=== PATIENT | female | born 1955 | race Caucasian/White ===

== ENCOUNTER 2021-11-10 09:48 | Outpatient (CLI) | payer MEDICARE, BC, SELFPAY ==
--- NOTE | 2021-11-10 10:15 | CRLHL7_ITS ---
For Patients: As a result of the Century Cures Act, medical imaging exams and procedure reports are released immediately into your electronic medical record. You may view this report before your referring provider. If you have questions, please contact your health care provider. BILATERAL SCREENING MAMMOGRAM WITH COMPUTER-AIDED DETECTION AND TOMOSYNTHESIS TECHNIQUE: CC and MLO views were obtained. These mammographic images have been obtained using full-field digital technique. These mammographic images were interpreted with the benefit of computer-aided detection. Breast Tomosynthesis was used in this interpretation. COMPARISON FILM: 04/22/20, 02/13/19, 02/10/18 FINDINGS: There are scattered areas of fibroglandular density IMPRESSION: There is no radiographic evidence for malignancy. ASSESSMENT: BI-RADS Category 1: Negative RECOMMENDATION: Routine screening mammogram in 1 year. A lay language report of this examination will be provided to the patient. Dudley Meyer M.D. Diagnostic/Musculoskeletal Radiologist [email or web address] Transcribed: 2:25 p.m. PT/Dictated by: Dudley Meyer MD @ 11/11/2021 11:11:00 AM (Electronically Signed)
== END 2021-11-10 09:49 | disposition home or self-care (01) ==
LOC: MAMMO 09:49
PROVIDERS: PCP Internal Medicine; Visit Provider Internal Medicine
DX: Z12.31 Encounter for screening mammogram for malignant neoplasm of breast (principal)
CPT/HCPCS: 77063; 77067

== ENCOUNTER 2022-01-05 12:10 | Outpatient (CLI) | payer MEDICARE, BC, SELFPAY ==
[2022-01-05 16:20] LABS: Cholesterol* 230 mg/dL (90-199); Glucose* 79 mg/dL (60-115)
[2022-01-05 16:21] LABS: HDL Cholesterol* 72 mg/dL (>=50); LDL Cholesterol Calculated 140 mg/dL (<100); Triglycerides* 90 mg/dL (40-149)
== END 2022-01-05 12:11 | disposition home or self-care (01) ==
PROVIDERS: PCP Internal Medicine; Visit Provider Physician Assistant
DX: Z01.419 Encounter for gynecological examination (general) (routine) without abnormal findings (principal); R35.0 Frequency of micturition; E66.9 Obesity, unspecified; Z83.49 Family history of other endocrine, nutritional and metabolic diseases; Z13.29 Encounter for screening for other suspected endocrine disorder; N95.1 Menopausal and female climacteric states; I34.0 Nonrheumatic mitral (valve) insufficiency
CPT/HCPCS: 80061; 82947; 84443; 87086

== ENCOUNTER 2022-05-06 17:25 | Emergency (ER) | payer MEDICARE, BC, SELFPAY ==
[2022-05-06 17:38] VITALS: BP 122/76; PULSE 60; RESP 16; TEMP 36.6; O2SAT 97; BMI 27.5
[2022-05-06 17:44] LABS: Appearance Urine Clear (Clear); Bilirubin Urine Negative (Negative); Blood Urine 1+ (Negative); Color Urine Yellow (Yellow); Glucose Urine Negative (Negative); Ketones Urine Negative (Negative); Leukocyte Esterase Urine Negative (Negative); Nitrite Urine Negative (Negative); Protein Urine Negative (Negative); Urobilinogen Urine 0.2 (0.2-1.0); pH Urine 5.5 (5.0-8.5)
--- NOTE | 2022-05-06 17:57 | ED_ITS ---
HPI - General Adult General Chief complaint: Urogenital Problems, Female Stated complaint: Possible UTI, Back Pain, Possible Kidney Stone Time Seen by Provider: 05/06/22 17:46 History of Present Illness HPI narrative: This 66-year-old female comes in reporting 6 weeks of symptoms including increased urinary frequency. She also has some pain in the right paraspinous musculature up near her scapula on the right side. She does not report any injury event or strenuous activity. She does not have a prior history of kidney stone but when she called the clinic nurse she was told to come here because she might have a kidney stone. She does not report any flank pain. She has not had any nausea or vomiting. She does have a prior history of diverticulitis but does not report any abdominal pain. Related Data Previous Rx's Medication Instructions Recorded citalopram 20 mg tablet 20 mg PO DAILY #90 tabs 01/05/22 estradiol 0.01% (0.1 mg/gram) 0.5 g vaginal DAILY #42.5 grams 01/05/22 vaginal cream oxybutynin chloride 5 mg See Rx Instructions .Route 01/22/22 tablet,extended release 24 hr .COMPLEX #90 tabs amoxicillin 875 mg-potassium 1 tab PO Q12H #14 tabs 04/13/22 clavulanate 125 mg tablet mirabegron 25 mg tablet,extended 25 mg PO DAILY #20 tabs 05/06/22 release 24 hr oxybutynin chloride 5 mg tablet 5 mg PO BID-TID PRN bladder spasms 05/06/22 #60 tabs Allergies Allergy/AdvReac Type Severity Reaction Status Date / Time No Known Drug Allergies Allergy Verified 01/05/22 11:37 Review of Systems Status of ROS: Reports: 10 or more systems reviewed and unremarkable except as noted in History and below Narrative: Constitutional: No fevers, no weight gain or loss. Eyes: No discharge. No vision changes. HENT: No congestion, no sore throat, no ear pain. Cardiovascular: No chest pain, no palpitations. Respiratory: No shortness of breath, no wheezes, no cough. Gastrointestinal: No abdominal pain, no vomiting, no diarrhea. Genitourinary: No hematuria. Increased urinary frequency. Musculoskeletal: Normal range of motion. Skin: No rashes, no pruritis. Neurological: No dizziness, weakness, sensory change, speech change. Endo/Heme/Allergies: No bruising or bleeding. No polydipsia. Pysch: no suicidality, no anxiety, no insomnia. All other systems reviewed and are negative. [facility] Medical History (Updated 05/06/22 @ 19:06 by Karthikeyan Harris MD) History of diverticulitis Surgical History (Updated 04/13/22 @ 07:56 by Breana Rodriguez MD) History of hemilaminectomy Family History (Updated 01/05/22 @ 11:00 by Lu Mendoza PA-C) Father Alzheimers disease Mother Breast cancer Cervical cancer Aunt Breast cancer Aunt Alzheimers disease Social History (Updated 01/05/22 @ 11:00 by Lu Mendoza PA-C) Narrative: . Retired. Lifetime nonsmoker. No alcohol use. Smoking Status: Never smoker Little interest or pleasure in doing things: not at all Feeling down, depressed, or hopeless: not at all Exam Narrative: Exam Narrative: Constitutional: Well-developed, well-nourished, no acute distress. HEENT: Normocephalic, atraumatic. Neck: Normal range of motion. Nontender. Supple. Heart: Regular. No murmurs. Normal rate. Intact distal pulses. Lungs: Clear to auscultation. No chest discomfort. No wheezes, rhonchi, or rales. Abdomen: Normal bowel sounds. Nontender. No rebound tenderness. Genitalia: Deferred. Back: No midline tenderness. Normal range of motion. Pain is reproducible when palpating along the paraspinous muscles and rhomboid muscles in the right upper back. Extremities: Normal range of motion. No injury. Skin: Intact. No rash. Warm. No erythema or pallor. Neurologic: No altered sensation. No weakness. Alert and oriented. Psychiatric: No suicidality. No anxiety or depression. No insomnia. Nursing notes and vitals signs are reviewed. Const: Vital Signs, click to edit/add: Vital Signs - 24 hr 05/06/22 17:38 Temperature 97.8 F Pulse Rate [Pulse Oximeter] 60 Respiratory Rate 16 Blood Pressure [Le ft Upper Arm] 122/76 Pulse Oximetry 97 Oxygen Delivery Me thod Room Air Course Vital Signs Vital signs: Initial Vital Signs Temperature 97.8 F 05/06/22 17:38 Temperature Source Temporal Artery Scan 05/06/22 17:38 Pulse Rate 60 05/06/22 17:38 Respiratory Rate 16 05/06/22 17:38 Blood Pressure 122/76 05/06/22 17:38 Blood Pressure Mean 91 05/06/22 17:38 Pulse Oximetry 97 05/06/22 17:38 Oxygen Delivery Method 05/06/22 17:38 Vital Signs Temperature 97.8 F 05/06/22 17:38 Pulse Rate 60 05/06/22 17:38 Respiratory Rate 16 05/06/22 17:38 Blood Pressure 122/76 05/06/22 17:38 Pulse Oximetry 97 05/06/22 17:38 Oxygen Delivery Method 05/06/22 17:38 Temperature 97.8 F 05/06/22 17:38 Pulse Rate 60 05/06/22 17:38 Respiratory Rate 16 05/06/22 17:38 Blood Pressure 122/76 05/06/22 17:38 Pulse Oximetry 97 05/06/22 17:38 Oxygen Delivery Method 05/06/22 17:38 Medical Decision Making MDM Narrative Medical decision making narrative: This patient comes in with some upper mid back pain as described above. There is no suspicion of kidney stone and no prior history of kidney stone. I did discuss lab and imaging options and the patient preferred to check a urine for sign of infection or hematuria. There is no sign of infection or hematuria on urinalysis. She has made 3 or 4 trips to the bathroom during the brief time she was in the emergency department because of overactive bladder. She does have a history of this and is currently taking oxybutynin 5 mg extended release. This is not helping her symptoms at all. I did discuss some options for her going forward and occluding using 5 mg oxybutynin regular release up to 3 times a day. I did also prescribe a muscarinic based treatment for overactive bladder, Mirabegron 25 mg. She has an appointment with her primary physician wear these medicines can be reviewed for effectiveness. Lab Data Labs: Lab Results 05/06/22 Range/Units 17:37 Urine Color Yellow (Yellow) Urine Appearance Clear (Clear) Urine pH 5.5 (5.0-8.5) Ur Specific [place] 1.010 (1.000-1.030) Urine Protein Negative (Negative) Urine Glucose (UA) Negative (Negative) Urine Ketones Negative (Negative) Urine Blood 1+ A (Negative) Urine Nitrite Negative (Negative) Urine Bilirubin Negative (Negative) Urine Urobilinogen 0.2 (0.2-1.0) Ur Leukocyte Esterase Negative (Negative) Urine RBC 0-2 (0-2) Urine WBC 0-2 (0-5) Ur Squamous Epith Cells Few (None-Few) Urine Bacteria None (None) Discharge Plan Discharge Clinical Impression: Overactive bladder Patient Disposition: Home, Self-Care Condition: Stable Additional Instructions: Take regular release oxybutynin 5 mg up to 3 times daily. If not improving consider using Mirabegron 25 mg daily. Follow-up with primary physician as scheduled or return if worsening. Prescriptions: New mirabegron 25 mg tablet extended release 24 hr 25 mg PO DAILY Qty: 20 2RF oxybutynin chloride 5 mg tablet 5 mg PO BID-TID PRN (Reason: bladder spasms) Qty: 60 0RF No Action citalopram 20 mg tablet 20 mg PO DAILY Qty: 90 3RF estradiol 0.01 % (0.1 mg/gram) cream 0.5 g vaginal DAILY Qty: 42.5 3RF amoxicillin-pot clavulanate 875-125 mg tablet 1 tab PO Q12H Qty: 14 0RF oxybutynin chloride 5 mg tablet extended release 24hr See Rx Instructions .ROUTE .COMPLEX Qty: 90 0RF Dose Instruction: TAKE 1 TABLET BY MOUTH EVERY DAY Rx Instructions: TAKE 1 TABLET BY MOUTH EVERY DAY Follow Up/Referrals: Breana Rodriguez MD [Primary Care Provider] - Stand Alone Forms: [facility] Info Instructions
[2022-05-06 18:09] LABS: RBC Urine 0-2 (0-2); Squamous Epithelial Cell Urine Few (None-Few); WBC Urine 0-2 (0-5)
[2022-05-06] MEDS: oxyBUTYnin chloride 5 MG TABLET PO (18:57)
== END 2022-05-06 19:28 | disposition home or self-care (01) ==
PROVIDERS: Emergency Provider Emergency Medicine Emergency Medical Services; PCP Internal Medicine
DX: N32.81 Overactive bladder (principal)
CPT/HCPCS: 81001; 99283; 99284; A9270

== ENCOUNTER 2022-06-22 15:00 | Outpatient (RCR) | payer MEDICARE, BC, SELFPAY ==
--- NOTE | 2022-05-31 12:40 | PT.OPEX ---
PT [place] Outpatient Eval PT [facility] Outpatient Eval Start: 05/28/22 12:44 Freq: Status: Active Protocol: Document 05/28/22 12:44 ARR (Rec: 05/28/22 13:46 ARR [id number]) E-signed By Brielle Patel DPT Physical Therapy Outpatient Evaluation Insurance Information Recert Due Date 08/26/22 Insurance Name Medicare B Medical Diagnosis N32.81 overactive bladder M54.6 pain in thoracic spine Treating Diagnosis R39.15 Urgency of Urination R27.8 Lack of coordination ( muscle incoordination) M54.6 pain in thoracic spine Subjective Subjective -Subjective: ER visit for bladder urgency and R thoracic spine pain on 05/06/22. Have constant urge to urinate in the last 5 years. Was in ER due to this, no infection. Had a burning sensation in urethra. Also gets some pain suprapubic as well. Feels like symptoms will ebb and flow with flares and then reductions. No pelvic PT in the past. -Urinary: No straining with urination. No changes in urine stream. Will get an urge to go, unsure if urge is painful. Daytime voiding 12-15 times. Nocturia 2x/night. Did try cutting down on water to stop going as often. Usually no leaking. Notes coffee can increase symptoms. Complete emptying - but does find that she needs to get up and then need to go back down again. -Hydration: 2-3 cups of water (16-24 oz) / 2 cups (16 oz) or more / social alcohol occasionally -Bowel: BM 1x/day, no straining, type 6 on bristol chart. Does have some bowel urgency. Complete emptying. -Sexual: no pain with intercourse. -Other: Is post-menopausal. ~ 14 yrs ago. Does have estradial cream, maybe 2x/ month. -PMHx: OAB on oxybutynin IR ( Recently changed from ER to IR on 05/06/22 to take 3x/day. Hasn't taken it the last few days) and Detrol stopped this a long time ago. Mitral valve regurgitation, obesity, GERD, low back pain, borderline hyperlipidemia, R sided thoracic pain -: G/P 2/2. Vaginal. Had episiotomy with one. No forceps or vacuum. -Surgical PMHx: hemilaminectomy [id number] L5. Had bone spur removed off big toe on R side, still painful. -Goals: get rid of urge to urinate. Get rid of back pain. Hard to be social and travel due to urgency/frequency. -Current exercise: walk 3x/ week for 30 minutes -Orthopedic issues: occasional back pain. R shoulder blade pain since 01/2022. Constant pain that doesn't change with position or activity. Sleeping will notice it and can wake up. Worse at night when going to bed. Is R handed. Objective Other/Pertinent Objective INTERNAL EXAMINATION INTRAVAGINAL: -Sensation: intact to touch -Observation: de- estrogenization of vulvar/ vaginal tissues with receded labia minor with resorption of inferior portion. Vaginal mucosae pale/shiny dry. Narrowing of introitus. -Perineum: normal -Cough: bulge -Lifting nil -Bulge: bulge Tenderness/pain to palpation/ tone: -Layer 1: ischiocavernosus / bulbospongiousus / superficial transverse perineal - TTP and increased tone -Layer 2: deep transverse perineal / sphincter urethrovaginalis - inc'd tone -Layer 3: puborectalis / pubococcygeus / iliococcygeus - inc'd tone Strength ( R / C / L): -Power (MMT): 3 -Endurance:4 -Reps: 3 -Fast twitch: able to complete 10 reps, in 10 seconds completing 4 reps. -Relaxation of PFM after quick contractions: delayed -Brink score: squeeze pressure 1, muscle contraction duration 1, lift 1. Total score 3 Other: -Breathing examination: dec?d posterior and lateral ribcage mvmt with inhalation -Coordination: poor TA activation with isometric activation Functional Test Performed & Score PFQ score: (total 33) -Bladder 23/45 -Bowel 7/34 -Prolapse 0/15 -Sexual Assessment Assessment/Impression Pt is a 67 y/o female who presents with concerns of urinary urgency/frequency at times voiding up to 15-16 times per day. Signs and symptoms likely indicating / consistent with urinary urgency secondary to elevated pelvic floor muscle tone throughout layers 1-3, reduced posterior/lateral rib expansion, impaired pelvic floor motor control. Behavioral factors also including low water intake consuming only 16-24 oz per day and elevated coffee intake nearly 16 oz per day, and voiding just in case. Patient also has notable objective findings including reduced [place] and brink squeeze strength also likely contributing to the problem. Patient is a good candidate for skilled therapy to target deficits described above. Skilled PT intervention is necessary for use of therapeutic exercise manual therapy, neuromuscular re- education, gait training, and therapeutic activity. Functional impairments include difficulty with: increased urgency/frequency limiting ability to go on vacations and social gatherings. See appropriate sections of PT eval for complete list of goals and POC. D/C plan and criteria is for pt to achieve the goals as listed below or until max rehab potential is met. Pt was agreeable with plan of care and goals established. Evaluation and internal vaginal PFM assessment/ treatment with patient consent was requested and obtained. Plan of Care Physical Therapy Goals STG (within 6 visits) 1) Pt will report voiding interval at least 60 minutes without strong urge to urinate to show improved bladder filling prior to voiding 2)Pt will be indep in recall of at least 4 urinary urge suppression techniques in order to increase duration of voiding interval 3)Pt will report at least 30% improvement in urinary symptoms since start of therapy for improved ability to go on vacations and social gatherings LTG (within 12 visits) 1)Pt will report voiding interval at least 2-3 hours without strong urge to show improved bladder filling prior to voiding 2) Pt will report counting 8- 10 Navarro's while urinating in order for proper micturition of a full bladder 3)Pt will report at least 60% improvement in urinary symptoms since start of therapy for improved ability to go on vacations and social gatherings 4) Pt will demonstrate PFQ score <23 for improved quality of life. Treatment Plan/Direct Interventions Electrical Stimulation,Gait Training,Joint Mobilization, Manual Therapy,Neuromuscular Re-ed,Self-Care/Home Management,Therapeutic Activities,Therapeutic Exercises Frequency/Duration 1x/wk x 12 visit within 90 days Patient Will Be Discharged From Therapy Skills Plateau,Independent w/ HEP Evaluation Billing Untimed Code Treatment Minutes 30 Complexity Moderate Certification Information Initial Certification Date 05/31/22 Ending Certification Date 08/26/22 Provider Signature Shows Agreement With POC & Medical Necessity Physician Signature & Date Requested Please Sign/Date Here Physician Comment/Change : Physician NPI Number #
== END 2022-09-30 23:59 | disposition home or self-care (01) ==
PROVIDERS: PCP Internal Medicine; Visit Provider Internal Medicine
DX: M54.6 Pain in thoracic spine (principal); N32.81 Overactive bladder; Z51.89 Encounter for other specified aftercare
CPT/HCPCS: 97110; 97140; 97162; 97535

== ENCOUNTER 2023-01-04 12:20 | Outpatient (CLI) | payer MEDICARE, BC, SELFPAY ==
[2023-01-04 14:34] VITALS: BP 127/70; PULSE 92
--- NOTE | 2023-01-04 16:56 | W.PM.STED ---
Stress Test Note Date Date of test: 01/04/23 Providers Primary care provider: Breana Rodriguez Stress test physician: Andrea Rodriguez Stress Test Note Stress test ordered: Stress Echo Indication for test: Shortness of breath Results discussion: Patient is a very nice 67-year-old female who presents for the above test after discussion the risks benefits and side effects she would like to proceed pretest EKG shows normal sinus rhythm, there is occasional PVCs, appears to be normal sinus rhythm, ventricular rate 68, blood pressure 107/61, cardiac stress test medical history form is reviewed. Patient would like to proceed with the test. Standard Yousuf protocol is followed over a time course of 7 minutes 2nd, achieved a metabolic VIII 0.5 Mets with a maximum heart rate of 137 which is 105% of the maximum, she had no chest pain, she had some mild fatigue, review of the tracing showed no evidence ST wave changes suggestive of ischemia, Impression: Negative electrographic portion of stress test Follow up suggested: Await echo images, clinical correlation with these will be needed, patient left this testing facility in excellent condition, conditioning was felt to be moderate
== END 2023-01-04 12:21 | disposition home or self-care (01) ==
LOC: STRESS 12:21
PROVIDERS: PCP Internal Medicine; Visit Provider Family Medicine
DX: R07.89 Other chest pain (principal); R06.09 Other forms of dyspnea
CPT/HCPCS: 93016; 93325; 93351

== ENCOUNTER 2023-01-23 17:47 | Emergency (ER) | payer MEDICARE, BC, SELFPAY ==
[2023-01-23] VITALS (13 sets, daily range): BP systolic 101–123; BP diastolic 60–77; PULSE 37–61; RESP 18; TEMP 36.9; O2SAT 92–98; BMI 28.3
--- NOTE | 2023-01-23 18:08 | ED.GENADULT ---
HPI - General Adult General Time Seen by Provider: 18:08 Date Seen: 01/23/23 Chief complaint: Extremity Pain/Injury, Upper Stated complaint: pain in shoulder, breathless, lightheaded Time Seen by Provider: 01/23/23 17:57 Source: patient, RN notes reviewed and old records reviewed Mode of arrival: ambulatory Limitations: no limitations History of Present Illness HPI narrative: This 67-year-old female is coming in with some concerns this evening. She admits she has had a pain in the right shoulder blade area for months, was more just a discomfort. The last couple weeks it has been more intensely painful. She on the way in noted a sudden sharp pain in the top of her shoulder. She does note that when she turns her head she will sometimes feel pain into the right shoulder. She states she generally has some achiness but she recently was put on atenolol for her heart. It sounds as if she was having premature ventricular beats. She believes that it helped that but she started feeling more achy, her legs were just super heavy with walking. She felt more lightheaded and dizzy, notes that her blood pressure runs low anyways. With her PVCs, she feels a flip-flop sensation or vibration. She is feeling that sensation now. She is started to feel more short of breath, she feels it is out of proportion to what she normally does. She baseline has a cough, she states she will feel little tickle in her throat and then will cough so hard. She wonders if that is how she did not initially aggravate her interscapular area on the right side of her back. No fevers or chills. Review of her notes shows that she had a stress echo on 01/05/2020 3-for ischemia, showing mild mitral regurgitation and mitral valve prolapse. She had Holter monitoring done that showed frequent PACs and PVCs, this was similar to the [facility] Holter monitor [place] [address] Rodriguez, greater than 10% of all of her beats. She is noted to have a history of long-standing palpitations. She is seen [facility] in the remote past, beta-blockade was recommended but she never went on it. She did recently go on the 20/5 mg of atenolol twice a day, stopped it due to the symptoms this past Tuesday. On 12/21/2022 she had went to the clinic for dyspnea on exertion and palpitations. Related Data Home Medications Medication Instructions Recorded Confirmed multivitamin (Daily Multi-Vitamin 1 tab PO QAM 05/13/22 01/23/23 tablet) fluticasone furoate 27.5 1 spray intranasal QDAY PRN 12/21/22 01/23/23 mcg/actuation nasal spray,suspension (Flonase Sensimist) Previous Rx's Medication Instructions Recorded estradiol 0.01% (0.1 mg/gram) 0.5 g vaginal DAILY #42.5 grams 01/05/22 vaginal cream atenolol 25 mg tablet 25 mg PO BID #180 tabs 01/10/23 Allergies Allergy/AdvReac Type Severity Reaction Status Date / Time No Known Drug Allergies Allergy Verified 01/23/23 17:58 Review of Systems Status of ROS: Reports: 6 or more systems reviewed and unremarkable except as noted in History and below [facility] Medical History History of diverticulitis ?Z87.19 - Personal history of other diseases of the digestive system (ICD-10) Surgical History History of hemilaminectomy ?Z98.890 - Other specified postprocedural states (ICD-10) Family History Father Alzheimers disease Mother Breast cancer Cervical cancer Aunt Breast cancer Aunt Alzheimers disease Social History Narrative: . Retired. Lifetime nonsmoker. No alcohol use. Smoking Status: Never smoker How often do you have a drink containing alcohol: monthly or less How many standard drinks containing alcohol do you have on a typical day: 1 or 2 How often do you have six or more drinks on one occasion: Never AUDIT-C Alcohol total score: 1 Non-prescribed substance use: denies use Little interest or pleasure in doing things: not at all Feeling down, depressed, or hopeless: not at all Exam Const: Vital Signs, click to edit/add: Vital Signs - 24 hr 01/23/23 17:50 01/23/23 18:10 01/23/23 18:12 Temperature 98.4 F Pulse Rate 39 L 49 L Pulse Rate [Right Pulse Oximeter] 37 L Respiratory Rate 18 Blood Pressure 102/68 Blood Pressure [Ri ght Upper Arm] 113/60 Pulse Oximetry 97 96 96 Oxygen Delivery Me thod Room Air 01/23/23 18:15 01/23/23 18:15 01/23/23 18:30 Temperature Pulse Rate 39 L 57 L Pulse Rate [Right Pulse Oximeter] Respiratory Rate Blood Pressure Blood Pressure [Ri ght Upper Arm] Pulse Oximetry 93 95 94 Oxygen Delivery Me thod 01/23/23 18:32 01/23/23 18:33 01/23/23 18:45 Temperature Pulse Rate 58 L 58 L 61 Pulse Rate [Right Pulse Oximeter] Respiratory Rate Blood Pressure 104/77 Blood Pressure [Ri ght Upper Arm] Pulse Oximetry 94 94 95 Oxygen Delivery Me thod This 67-year-old female is very pleasant, quite talkative, does seem mildly anxious. Speech is normal, able to speak in complete sentences. Sq clear come x-rayed muscles intact. Symmetrical facial function. Neck is supple, no jugular venous distension, no cervical adenopathy, no thyromegaly masses or nodules. She sits up easily, lungs are clear, good air entry, no wheezing or crackles, no tachypnea. She has no midline tenderness of her spine. She has definite tenderness in the interscapular area of the upper portion between the spine and the scapula on the right side, she has reproducible muscular pain there. I can mobilize her right shoulder through full range, no reproducible pain. She is nontender over the clavicle, AC joint, glenohumeral joint, no effusions noted. CV has some ectopy, hear no murmur, normal S1-S2, she is not fast. As I watch on the monitor, can see frequent PVCs sometimes seems to going to bigeminy, do see a few couplets of PVCs. Abdomen is soft, no rebound or guarding, nontender, no organomegaly. She has no lower extremity edema, no calf tenderness. She was ambulatory in the ED of her own accord. Documenting provider has reviewed patient's vital signs: yes Course Course ED Course: Will have her on cardiac monitoring and pulse oximetry, get appropriate labs and a portable chest x-ray. She has had quite an extensive workup already, doubt that her symptoms represent any ischemic disease given normal recent stress test. We will do a troponin. Her interscapular back pain symptoms definitely seem musculoskeletal, have been present for days to weeks and beyond, solitary troponin should be sufficient in her evaluation tonight. Will get a chest x-ray, doubt she has congestive heart failure. Will do a D-dimer. Some of her history that she gave me suggest maybe some cervical radiculopathy features. We will focus on her complaint of the shortness of breath. Check full complement of labs. She is not hypoxic, not tachycardic. She has been on atenolol recently, she might benefit from maybe just a smaller dose of atenolol. Will see if we find anything with her labs are on the chest x-ray, on her cardiac monitoring while she is here over and beyond what I have seen already. She certainly does seem to have significant PVCs and it does sound like the beta-delim did help this but she did not tolerate the dose due to side effects. Reevaluation(s) Time of Reevaluation #1: 19:20 Reevaluation #1: Patient is seen in follow-up, reviewed with her that I see nothing concerning on her portable chest x-ray. Her heart rate has been upper 50s to low 60s on the applications administrator. Pulse on the pulse oximeter has been at the lowest 39, her pulse rate when she checked in on the pulse oximeter was 37. The difference between oximeter and applications administrator is likely the PVCs. She has not been hypoxic here. She does have a negative D-dimer, normal troponin, we reviewed her normal lab results. We discussed that that interscapular back pain is very likely muscular, I did talk about thing she could do outpatient. I did bring up possibility of trigger point injections. She really would like me to try 1 tonight, I discussed with her that we do not typically do this in the ER. I do have time and I am willing to try this for her. We went over risks benefits and side effects, she proceeds to request to have this done. The maximal point of tenderness over the right upper inner aspect of the scapula in the interscapular area were cleaned with alcohol, 5 mL of 1% lidocaine was drawn up in a syringe. I fanned the lidocaine out over the point of maximal tenderness. I did massage the area little bit afterwards. She states it did feel better. IA reassure her that we are not finding any concerning cardiac issues tonight. She has questions about the dyspnea on exertion, reviewed with her that she should follow-up with Dr. Rodriguez for all of these issues, there can be other things causing shortness of breath including pulmonary, possible even such things as deconditioning. She will need further outpatient evaluation, there is nothing needed emergently at this time. Vital Signs Vital signs: Initial Vital Signs Temperature 98.4 F 01/23/23 17:50 Temperature Source Temporal Artery Scan 01/23/23 17:50 Pulse Rate 37 L 01/23/23 17:50 Respiratory Rate 18 01/23/23 17:50 Blood Pressure 113/60 01/23/23 17:50 Blood Pressure Mean 77 01/23/23 17:50 Blood Pressure Position Sitting 01/23/23 17:50 Pulse Oximetry 97 01/23/23 17:50 Oxygen Delivery Method Room Air 01/23/23 17:50 Vital Signs Temperature 98.4 F 01/23/23 17:50 Pulse Rate 37 L 01/23/23 17:50 Respiratory Rate 18 01/23/23 17:50 Blood Pressure 113/60 01/23/23 17:50 Pulse Oximetry 97 01/23/23 17:50 Oxygen Delivery Method Room Air 01/23/23 17:50 Temperature 98.4 F 01/23/23 17:50 Pulse Rate 61 01/23/23 18:45 Respiratory Rate 18 01/23/23 17:50 Blood Pressure 104/77 01/23/23 18:32 Pulse Oximetry 95 01/23/23 18:45 Oxygen Delivery Method Room Air 01/23/23 17:50 Medical Decision Making Lab Data Lab results reviewed: Yes I reviewed the patient's lab results Labs: Lab Results 01/23/23 01/23/23 Range/Units 18:15 18:16 WBC 5.98 (4.50-11.00) K/uL RBC 4.37 (4.00-5.20) m/uL Hgb 12.8 (12.0-16.0) gm/dL Hct 37.5 (33.0-51.0) % MCV 86 (80-100) fL MCH 29 (26-34) pg MCHC 34 (32-36) gm/dL RDW Coeff of [place] 12.9 (11.5-15.5) % Plt Count 171 (140-440) K/uL Neut % (Auto) 50.5 (42.0-72.0) % Lymph % (Auto) 36.8 (20-44) % [place] % (Auto) 8.2 (0.0-11.0) % Eos % (Auto) 3.8 (0.0-7.0) % Baso % (Auto) 0.7 (0.0-3.0) % Neut # (Auto) 3.02 (1.7-7.0) K/uL Lymph # (Auto) 2.20 (0.90-2.90) K/uL [place] # (Auto) 0.50 (0.00-0.90) K/UL Eos # (Auto) 0.23 (0.00-0.50) K/uL Baso # (Auto) 0.04 (0.00-0.30) K/uL Abs Immat Gran (auto) 0.00 (0.00-0.30) K/uL Imm/Tot Granulo (auto) 0.0 % D-Dimer Quant (PE/DVT) 0.31 (0.00-0.50) ug/ml Sodium 139 (135-149) mmol/L Potassium 3.7 (3.6-5.1) mmol/L Chloride 107 (96-114) mmol/L Carbon Dioxide 23 (20-32) mmol/L Anion Gap 9 (7-15) mEq/L BUN 28 (7-30) mg/dL Creatinine 0.8 (0.5-1.5) mg/dL Estimated Creat Clear 49.12 Estimated GFR 81 ml/min Glucose 127 H (60-115) mg/dL Calcium 9.1 (8.4-10.6) mg/dL Magnesium 2.2 (1.5-2.6) mg/dL Total Bilirubin 0.2 (0.1-1.5) mg/dL AST 42 H (12-35) U/L ALT 17 (4-35) U/L Alkaline Phosphatase 83 (40-150) U/L C-Reactive Protein 0.8 (0.5-1.0) mg/dL NT-Pro-B Natriuret Pep 353 pg/mL Total Protein 7.0 (6.0-8.3) g/dL Albumin 4.2 (3.3-5.0) g/dL POC Troponin I 0.00 L (0.01-0.04) ng/ml Imaging Data Chest x-ray: Attestation: I have reviewed the pertinent imaging results. My impression: No acute pathology on my preliminary review. Radiologist's impression: Patient: MONIKA QUILES Facility:?[facility] Patient ID:?[id number] Site Patient ID:?[id number]. Site :?[id number] Study:?XRay Chest portable-01/23/2023 6:31:08 PM Ordering Physician:Teena Hull Final Report: INDICATION: Shortness of breath TECHNIQUE: Chest 1 view. COMPARISON: None. FINDINGS: The heart is normal in size. The pulmonary vasculature is within normal limits. The lungs are clear. The bones are unremarkable. IMPRESSION: No acute process. Dictated by Janet Preciado MD @ 01/23/2023 7:27:54 PM Dictated by: Janet Preciado MD @ 01/23/2023 19:28:15 (Electronic Signature) ECG Data Attestation: I personally reviewed and interpreted this ECG as follows: (Sinus rhythm with PVCs, 1 couplet seen. Rate is 77 beats per minute. QT corrected 482 milliseconds. No definitive ischemic changes noted.) Discharge Plan Discharge Clinical Impression: Shortness of breath, Frequent PVCs, Rhomboid muscle pain Patient Disposition: Home, Self-Care Condition: Stable Instructions: Musculoskeletal Pain (ED), Premature Ventricular Contractions (ED), Shortness of Breath (ED), Trigger Point Injection (DC) Additional Instructions: Need to get scheduled to follow-up with Dr. Rodriguez in clinic. Need to review your intolerance to the atenolol. I do think you could consider just trying to use the atenolol once daily but do advise you to talk to Dr. Rodriguez 1st. As far as the back pain, I feel this is musculoskeletal, we will see if the trigger point injection helps. Can try the naproxen 500 mg twice a day for 5-7 days that you have at home. You can also use Tylenol 1000 mg 3 times a day for this discomfort. You can try some ice to this area on your back. Physical therapy could be considered, referral can be obtained from Dr. Rodriguez given the chronicity of your complaint of pain in this region. Activity Level: Activity as Tolerated Prescriptions: No Action Flonase Sensimist 27.5 mcg/actuation spray,suspension 1 spray intranasal QDAY PRN Rx Instructions: into each nostril estradiol 0.01 % (0.1 mg/gram) cream 0.5 g vaginal DAILY Qty: 42.5 3RF multivitamin [Daily Multi-Vitamin] Tablet 1 tab PO QAM atenolol 25 mg tablet 25 mg PO BID Qty: 180 3RF Follow Up/Referrals: Breana Rodriguez MD [Primary Care Provider] - Stand Alone Forms: videoNEXT Info Instructions
--- NOTE | 2023-01-23 18:15 | CRLHL7_ITS ---
For Patients: As a result of the Cures Act, medical imaging exams and procedure reports are released immediately into your electronic medical record. You may view this report before your referring provider. If you have questions, please contact your health care provider. INDICATION: Shortness of breath TECHNIQUE: Chest 1 view. COMPARISON: None. FINDINGS: The heart is normal in size. The pulmonary vasculature is within normal limits. The lungs are clear. The bones are unremarkable. IMPRESSION: No acute process. Dictated by Janet Preciado MD @ 01/23/2023 7:27:54 PM Dictated by: Janet Preciado MD @ 01/23/2023 19:28:15 (Electronically Signed)
[2023-01-23 18:30] LABS: Basophils Absolute Auto 0.04 K/uL (0.00-0.30); Basophils Percent Auto 0.7 % (0.0-3.0); Eosinophils Absolute Auto 0.23 K/uL (0.00-0.50); Eosinophils Percent Auto 3.8 % (0.0-7.0); Hematocrit 37.5 % (33.0-51.0); Hemoglobin* 12.8 gm/dL (12.0-16.0); Lymphocytes Percent Auto 36.8 % (20-44); Mean Corpuscular HGB Conc 34 gm/dL (32-36); Mean Corpuscular Hemoglobin 29 pg (26-34); Mean Corpuscular Volume 86 fL (80-100); Monocytes Percent Auto 8.2 % (0.0-11.0); Neutrophils Absolute Auto 3.02 K/uL (1.7-7.0); Neutrophils Percent Auto 50.5 % (42.0-72.0); Platelet Count* 171 K/uL (140-440); RDW Coefficient of Variation % 12.9 % (11.5-15.5); Red Blood Count 4.37 m/uL (4.00-5.20); White Blood Count* 5.98 K/uL (4.50-11.00)
[2023-01-23 18:32] LABS: Slide Review Reflex No
[2023-01-23 18:51] LABS: Albumin* 4.2 g/dL (3.3-5.0); Chloride* 107 mmol/L (96-114); Sodium* 139 mmol/L (135-149)
[2023-01-23 18:52] LABS: Potassium* 3.7 mmol/L (3.6-5.1)
[2023-01-23 18:54] LABS: Bilirubin Total* 0.2 mg/dL (0.1-1.5); Creatinine* 0.8 mg/dL (0.5-1.5); Est. Creatinine Clearance* 49.12; Estimated Glomerular Filt Rate 81 ml/min
[2023-01-23 18:55] LABS: Alanine Aminotransferase* 17 U/L (4-35); Alkaline Phosphatase* 83 U/L (40-150); Anion Gap 9 mEq/L (7-15); Aspartate Amino Transferase* 42 U/L (12-35); Blood Urea Nitrogen* 28 mg/dL (7-30); Calcium* 9.1 mg/dL (8.4-10.6); Carbon Dioxide* 23 mmol/L (20-32); Glucose* 127 mg/dL (60-115); Magnesium* 2.2 mg/dL (1.5-2.6)
[2023-01-23 18:56] LABS: D Dimer Quantitative* 0.31 ug/ml (0.00-0.50)
[2023-01-23 18:58] LABS: C Reactive Protein* 0.8 mg/dL (0.5-1.0)
[2023-01-23 19:04] LABS: NT Pro B Type NatriureticPept* 353 pg/mL
== END 2023-01-23 19:44 | disposition home or self-care (01) ==
PROVIDERS: Emergency Provider Family Medicine; PCP Internal Medicine
DX: R06.02 Shortness of breath (principal); I49.3 Ventricular premature depolarization; M79.18 Myalgia, other site
CPT/HCPCS: 36415; 71045; 80053; 83735; 83880; 84484; 85025; 85379; 86140; 87040; 93005; 94761; 99284; 99285

== ENCOUNTER 2023-02-14 13:15 | Outpatient (CLI) | payer MEDICARE, BC, SELFPAY ==
--- NOTE | 2023-02-14 13:20 | CRLHL7_ITS ---
For Patients: As a result of the Cures Act, medical imaging exams and procedure reports are released immediately into your electronic medical record. You may view this report before your referring provider. If you have questions, please contact your health care provider. BILATERAL SCREENING MAMMOGRAM WITH COMPUTER-AIDED DETECTION AND TOMOSYNTHESIS TECHNIQUE: CC and MLO views were obtained. These mammographic images have been obtained using full-field digital technique. These mammographic images were interpreted with the benefit of computer-aided detection. Breast tomosynthesis was used in this interpretation. COMPARISON FILM: 11/10/21, 04/22/20, 02/13/19. FINDINGS: There are scattered areas of fibroglandular density. IMPRESSION: There is no radiographic evidence for malignancy. ASSESSMENT: BI-RADS Category 1: Negative RECOMMENDATION: Routine screening mammogram in 1 year. A lay language report of this examination will be provided to the patient. LD COURTNEY M.D. Diagnostic Radiologist [email or web address] Transcribed: 02/15/2023, 2:[address]/Dictated by: Ld Courtney MD @ 02/15/2023 8:40:00 AM (Electronically Signed)
== END 2023-02-14 13:16 | disposition home or self-care (01) ==
LOC: MAMMO 13:16
PROVIDERS: Absent Provider Obstetrics & Gynecology; PCP Internal Medicine; Visit Provider Obstetrics & Gynecology
DX: Z12.31 Encounter for screening mammogram for malignant neoplasm of breast (principal)
CPT/HCPCS: 77063; 77067

== ENCOUNTER 2024-03-25 08:18 | Emergency (ER) | payer MEDICARE, BC, SELFPAY ==
--- OUTSIDE RECORDS SUMMARY | 2024-03-25 08:20 | XMS_ITS | Encounter Summary ---
Author Organization [facility] Address [address] [place] [id number] Care Team Providers Care Canvas Repairer Name Role Phone Jagdish Astorga M.D. Primary Care Provider [phone] Reason for Visit * Reason Onset Date Comments Abdominal Pain 03/24/2024 Encounter Details Date Type Department Care Team (Late st Contact Info) Description 03/24/2024 Nurse Triage Department of Family Medicine, [facility], in [address] [phone] Lilly Alejo, R.N. [address] [place] [phone] Abdominal Pain Social History Tobacco Use Types Packs/Day Years Used Date Smoking Tobacco: Never Smokeless Tobacco: Never Alcohol Use Standard Drinks/Week Comments Yes 0 (1 standard drink = 0.6 oz pur e alcohol) Social [facility] Utilities Answer Date Recorded In the past 12 months has [place] electric, gas, oil, or water company threatened to shut off services in your home? No 01/02/2024 Social Connection and Isolat ion Panel [NHANES] Answer Date Recorded In a typical week, how many times do you talk on the phone with family, friends, or neighbors? More than three times a week 02/11/2020 How often do you get togethe r with friends or relatives? More than three times a week 02/11/2020 How often do you attend chur ch or anglican services? More than 4 times per year 02/11/2020 Do you belong to any clubs o r organizations such as congregational groups, unions, fraternal or athletic groups, or school groups? No 02/11/2020 How often do you attend meet ings of the clubs or organizations you belong to? Never 02/11/2020 Are you , , di vorced, , never , or living with a partner? 02/11/2020 AUDIT-C Answer Date Recorded Q1: How often do you have a drink containing alc ohol? 2-4 times a month 02/11/2020 Q2: How many drinks containi ng alcohol do you have on a typical day when you are drinking? 1 or 2 02/11/2020 Q3: How often do you have si x or more drinks on one occasion? Never 02/11/2020 Overall Financial Resource Strain (CARDIA) Answe r Date Recorded How hard is it for you to pa y for the very basics like food, housing, medical care, and heating? Not hard at all 02/11/2020 PHQ-2 Answer Date Recorded PHQ-2 Score 0 01/02/2024 [facility] - Occupational Stress Questionnaire Answer Date Recorded Do you feel stress - tense, restless, nervous, or anxious, or unable to sleep at night because your mind is troubled all the time - these days? Only a little 02/11/2020 Exercise Vital Sign Answer Date Recorde d On average, how many days pe r week do you engage in moderate to strenuous exercise (like a brisk walk)? 3 days 03/08/2023 On average, how many minutes do you engage in exercise at this level? 20 min 03/08/2023 Hunger Vital Sign Answer Date Recorded Within the past 12 months, y ou worried that your food would run out before you got the money to buy more. Never true 01/02/20 24 Within the past 12 months, t he food you bought just didn't last and you didn't have money to get more. Never true 01/02/2024 PRAPARE - Transportation Answer Date Re corded In the past 12 months, has l ack of transportation kept you from medical appointments or from getting medications? No 12/13 In the past 12 months, has l ack of transportation kept you from meetings, work, or from getting things needed for daily living? No 01/02/2024 Nutrition Answer Date Recorded On average, how many serving s of fruits and vegetables do you eat per day (serving size is equal to 1 cup or approximately the size of a tennis ball)? 3-5 03/08/2023 Dental Answer Date Recorded Dental: Regular Dentist Yes 03/08/20 Employment Answer Date Recorded Employment status Retired 03/08/2023 Housing Stability Answer Date Recorded What is your living situation today? I have a [facility] place to live 01/02/2024 Education Answer Date Recorded What is the highest level of school you have completed or the highest degree you have received? 12th grade 02/11/2020 Comments No Sex and Gender Information Value Date Recorded Sex Assigned at Female 03/08/2023 1:21 PM SUPERINTENDENT METERS Legal Sex Female 5:23 AM SUPERINTENDENT METERS Gender Identity Female 03/30/2020 2:08 PM SUPERINTENDENT METERS Sexual Orientation Straight 03/30/2020 2: 08 PM SUPERINTENDENT METERS documented as of this encounter Miscellaneous Notes * Telephone Encounter - Lilly Alejo R.N. - 03/24/2024 8:35 AM CST Chief Complaint / Reason for Call Patient is a 68 y.o. female calling regarding Abdominal Pain. Assessment Concern: Lower abdominal pain that comes and goes and is reminiscent of previous diverticulitis pain. Starts in left lower abdomen and moves across. Last 3 nights has had chills, waking up in a sweatand low grade fever of 99-100 F. Wants to know if she can receive treatment over the phone. Present for: 3 days Home cares tried: Tylenol. Calling to request: Treatment for possible diverticulitis. The recommended disposition is See a health care provider within 24 hours. Patient PCOD options: Patient is recommended to seek care within 24 hours. [facility] shared as a good option to receive care, however due to her symptoms patient was advised she may require an in-person visit. Patient agrees to use [facility] to evaluate their symptoms. Message including link to download the bradley and basic instructions sent to patient portal. Reason for Disposition [1] MODERATE pain (e.g., interferes with normal activities) AND [2] pain comes and goes (cramps) AND [3] present > 24 hours (Exception: Pain with Vomiting or Diarrhea - see that Guideline.) Protocols used: Abdominal Pain - [place]-[id number]-FQ Care Advice Patient/Caregiver understands and will follow care advice?: Yes, able to teach back Abdominal Pain - Ncnikc-Frawo-PX Nurse Lilly Sosa Mar 24, 2024 08:42 AM Care Advice SEE PCP WITHIN 24 HOURS: * You need to be examined within the next 24 hours. CALL BACK IF: * Severe pain lasts over 1 hour * Constant pain lasts over 2 hours * You become worse RINTENDENT METERS documented in this encounter Plan of Treatment Upcoming Encounters Date Type Department Care Team (Late st Contact Info) Description 03/30/2024 9:00 AM SUPERINTENDENT METERS Office Visit Department of Cardiovascular Diseases in [place], [place] [address] [place] [phone] Aris Martinez M.D. [address] [place] [phone] documented as of this encounter Visit Diagnoses Not on filedocumented in this encounter Additional Health Concerns Assessment Noted Time PHQ-9 Depression Total Score: 4 02/01/20 15 10:13 AM SUPERINTENDENT METERS documented as of this encounter Care Teams Canvas Repairer Relationship Specialty Start Date End Date Jagdish Astorga M.D. [address] [place] [phone] PCP - General Family Medicine 03/03/23 [facility] [place], [place] Optometry 01/02/24 documented as of this encounter
--- OUTSIDE RECORDS SUMMARY | 2024-03-25 08:20 | XMS_ITS ---
Author Organization [facility] Address [address] [place] [address] Care Team Providers Care Flatwork Ironer Name Role Phone Unavailable Unavailable Unavailable Surgery Details Not on file Complications Check Surgery Details section. Procedure Estimated Blood Loss Check Surgery Details section. Procedure Findings Check Surgery Details section. Procedure Specimens Taken Check Surgery Details section.
--- OUTSIDE RECORDS SUMMARY | 2024-03-25 08:20 | XMS_ITS | Continuity of Care Document ---
Author Name NwSANDRON User [email or web address] Address Unknown Organization Unknown Address Unknown Procedures FILTER APPLIED:Only known Procedures with Onset Date within the last 5 years Procedure Date Procedure Provider Additiona l Information Status SCR MAMMO BI INCL CAD (95567) Completed BREAST TOMOSYNTHESIS BI (98990) Completed COMPLETE CBC W/AUTO DIFF WBC (75723) Completed ELECTROCARDIOGRAM TRACING (05662) Completed MEASURE BLOOD OXYGEN LEVEL (45231) Completed EMERGENCY DEPT VISIT MOD MDM (30739) Completed ASSAY OF TROPONIN QUANT (39158) Completed X-RAY EXAM CHEST 1 VIEW (79485) Completed ROUTINE VENIPUNCTURE (73616) Completed EMERGENCY DEPT VISIT HI MDM (18823) Completed COMPREHEN METABOLIC PANEL (07607) Completed ASSAY OF MAGNESIUM (85493) Completed ASSAY OF NATRIURETIC PEPTIDE (19985) Completed FIBRIN DEGRADATION QUANT (56572) Completed C-REACTIVE PROTEIN (90650) Completed DOPPLER COLOR FLOW ADD-ON (27956) Completed STRESS TTE COMPLETE (74007) Completed Encounters FILTER APPLIED:Only known Encounters with Admission Date within the last 5 years Encounter Location Admission Discharge Billing Code Office Support Specialist [facility]red [facility] Out[facility] Nikita Rivers
--- OUTSIDE RECORDS SUMMARY | 2024-03-25 08:20 | XMS_ITS | Encounter Summary ---
Author Organization [facility] Address [address] [place] [address] Care Team Providers Care Racking Technician Name Role Phone Jagdish Astorga M.D. Primary Care Provider Encounter Details Date Type Department Care Team (Late st Contact Info) Description 09/23/2014 Historical Ophthalmology [facility] Leatha Moreno M.D. Social History Tobacco Use Types Packs/Day Years Used Date Smoking Tobacco: Never Assessed Comments Unknown Sex and Gender Information Value Date Recorded Sex Assigned at Female 03/08/2023 1:21 PM PASTRY SUPERVISOR Legal Sex Female 5:23 AM PASTRY SUPERVISOR Gender Identity Female 03/30/2020 2:08 PM PASTRY SUPERVISOR Sexual Orientation Straight 03/30/2020 2: 08 PM PASTRY SUPERVISOR documented as of this encounter Progress Notes * Leatha Moreno M.D. - 09/23/2014 7:07 AM CDT Eye General CHIEF COMPLAINT Possible optic nerve inflammation HISTORY OF PRESENT ILLNESS No current changes/concerns with vision. From Dr. Hernandez's Neurology Consult note of 09/17/14: In June 2014 she was in [place]. She is sitting in a chair and noticed a white flash in the peripheral of her vision. She cannot remember which eye. Then she was watching TV and noticed white spots in the middle of the faces of both people on TV.This lasted for a couple of minutes, and she turned off the TV and it went away. There were no white spots on the wall or anywhere else. This was possibly in both eyes, but she is not sure. She then subsequently maybe had some blurry vision in both eyes for the rest of the day and did not feel welloverall. She went to lay down and felt better. She did feel lightheaded subsequently that week and a little bit sick. She did have one brief episode of double vision that lasted for a couple seconds.She did not have any eye pain. She did have a sharp head pain in the occiput region which is tenderto the touch. She also notes that she has some right eyebrow tenderness which spread to her right mandaen. Massaging her mandaen does help. She also feels an occasional pinching behind her eye. Throughout the winter she has had some pressure in her right ear which she thought has been recurrent ear infections. She did receive amoxicillin at one point. In July 2014 she did have an MRI. We do not have these images, but according to the report of her primary care doctor, the MRI showed a small amount of enhancement along the right prechiasmatic optic nerve which might be consistent with optic neuritis. Because of this, she was referred here to [place].She did see an chimney sweeper at the end of July who did a dilated eye exam and said her optic nerve was not inflamed. He told her not to worry and that sometimes radiologists overcall things. Her eyes were okay. Since then she has not had any recurrence of the blurry vision or double vision. Sometimes she doesfeel lightheaded when looking up. She does continue to occasionally have a sharp tenderness in the back of her head which is painful to the touch as well as the pressure over her right eyebrows. She does note that she has had numerous years of sinus headaches. For this she has taken various ppfq-not-cmmyiae medications but nothing in the last month. EBONY: Hx as above. She saw a white flash of light on one side of her vision (she can't recall which side) for a few seconds and she couldn't see the faces on TV for a few minutes followed by a OLIVAS. Shewent and layed down. The thinks this was two months ago. Hx of sinus headaches. These have been constant since the beginning of 2014, in her R eyebrow region radiating to her ear and the back of the skull. This is like a pressure sensation. No nausea. Has photo and phonophobia but no osmophobia. Has tried several OTC pain and sinus meds but she's not sure they help, not currently taking anything. Was told of fluid in her ear and was given antibioticswithout relief. No known family hx of headaches. Sister (age 63) dx w glioblastoma in 12/25 (she also had a white flash). She saw Dr. Turk in [facility] who didn't think there was any evidence of inflammation. No outside eye records available to me. Reviewed neuro notes. No neuro-imaging available. IMPRESSION / REPORT / PLAN Consult requested by: Rosalia Gayle [id number] #1 Migraine headache with aura, with no ocular cause, with no ocular findings. Reassured - exam is normal. History is not consistent with optic neuritis. Plan: Baseline disc photos and OCT. I will review the tests when completed and put the results in the EMR. Photo Interpretation: Photos confirm and document clinical findings of diagnosis and are of sufficient quality to permit their use to follow disease progression. Cirrus RNFL OCT: Normal OU. Avg thickness 98 OD, 87 OS. Signal 9/10 OU. Cirrus ganglion OCT: Normal OU. Avg thickness 79 OD, 78 OS. Signal 9/10 OU. #2 Refractive error (hyperopia, hyperopic astigmatism, presbyopia). Plan: no change in spectacle prescription recommended, spectacle prescription (Refraction 1) given. DIAGNOSIS #1 Migraine headache with aura, with no ocular cause, with no ocular findings. #2 Refractive error (hyperopia, hyperopic astigmatism, presbyopia). CDM Reports - [facility] Id: [id number] Status: Fnl documented in this encounter Plan of Treatment Upcoming Encounters Date Type Department Care Team (Late st Contact Info) Description 03/30/2024 9:00 AM PASTRY SUPERVISOR Office Visit Department of Cardiovascular Diseases in [address] [id number] Aris Martinez M.D. [address] [place] [address] documented as of this encounter Visit Diagnoses Not on filedocumented in this encounter Additional Health Concerns Infection Onset Date Last Indicated Resolved Time COVID19 01/31/2023 01/31/2023 02/20/2023 5:49 AM PASTRY SUPERVISOR Assessment Noted Time PHQ-9 Depression Total Score: 3 07/06/19 15 8:44 AM CDT documented as of this encounter Care Teams Racking Technician Relationship Specialty Start Date End Date Jagdish Astorga M.D. [address] [facility] [place] [id number] PCP - General Family Medicine 03/03/23 [facility] [place], [place] Optometry 01/02/24 documented as of this encounter
--- OUTSIDE RECORDS SUMMARY | 2024-03-25 08:20 | XMS_ITS | Clinical Summary ---
Author Organization [facility] Address [address] [place] [address] Care Team Providers Care Nurse Orthopaedic Name Role Phone Jagdish Astorga M.D. Primary Care Provider [phone] Source Comments Patient records contain information from all sites at [facility]. For routine questions regarding patient records, call [phone] during business hours, M-F 8:00 AM - 5:00 PM Central Time. Record requests for emergency care only can be directed to [phone] at any time.[facility] Allergies No known active allergies Medications estradioL (Estrace) 0.5 mg tablet 0.5 g by other route. 2 Active fluticasone (VERAMYST) 27.5 mcg/actuation nasal spray Administer 1 spray into each nostril daily. 9.1 mL 1 4 Active Additional Information Patient taking differently:1 spray each nostrilDaily PRN, rhinitis, allergies, Reported on 01/02/2024 dilTIAZem CD (Cardizem CD) 180 mg 24 hr capsule Take 1 capsule (180 mg total) by mouth daily. 90 capsule 3 4 Active Active Problems Patient Care Coordination No te Formatting of this note migh t be different from the original. SHONNA completed 01/02/24 for Dwight, and [place], child. This is valid for life unless revoked. Problem Noted Date Diagnosed Date Fatigue 04/18/2023 Urinary Urge Incontinence 12/20/2016 Rhinitis Allergic 12/20/2016 Hernia Hiatal 12/20/2016 Dry Eye Syndrome Bilateral 12/20/2016 Presbyopia 09/23/2014 Mitral Valve Prolapse 09/05/2014 Beat Premature Ventricular 09/05/2014 Pain Low Back Unspecified 06/14/2011 Rosacea 06/14/2011 Radiculopathy Sacral First Left 05/12/2005 Resolved Problems Problem Noted Date Diagnosed Date Resolved Date Diverticulosis Colon 12/24/2016 021 Esophagitis 07/25/2014 04/01/2020 Neuritis Optic 07/23/2014 04/01/2020 Encounters Date Type Department Care Team Description 03/24/2024 Nurse Triage Department of Family Medicine, [facility], in [address] [address] Lilly Alejo, RShengN. Abdominal Pain 03/21/2024 9:47 AM BUSINESS SUPPORT ASSISTANT - 03/21/2024 11:59 PM BUSINESS SUPPORT ASSISTANT Hospital Encounter Department of Cardiovascular Diseases in [address] [address] Aris Martinez M.D. Shortness Of Breath; Beat Premature Ventricular; Mitral Valve Prolapse Discharge Disposition: Home or Self Care 03/21/2024 8:41 AM BUSINESS SUPPORT ASSISTANT - 03/21/2024 9:46 AM BUSINESS SUPPORT ASSISTANT Hospital Encounter Department of Laboratory Medicine in [address] [address] Aris Martinez M.D. Shortness Of Breath; Beat Premature Ventricular; Mitral Valve Prolapse Discharge Disposition: Home or Self Care 03/21/2024 8:41 AM BUSINESS SUPPORT ASSISTANT - 03/21/2024 9:46 AM BUSINESS SUPPORT ASSISTANT Hospital Encounter Department of Cardiovascular Diseases in [address] [address] Aris Martinez M.D. Shortness Of Breath; Beat Premature Ventricular; Mitral Valve Prolapse Discharge Disposition: Home or Self Care 02/17/2024 9:46 AM BUSINESS SUPPORT ASSISTANT - 02/17/2024 11:59 PM BUSINESS SUPPORT ASSISTANT Hospital Encounter Department of Radiology in [address] [address] Jagdish Astorga M.D. Screening Mammogram Breast Cancer Discharge Disposition: Home or Self Care 01/16/2024 Orders Only Department of [facility], [facility], in [address] [address] Jagdish Astorga M.D. Osteoporosis (Primary Dx) 01/02/2024 10:30 AM CDT Office Visit Department of [facility], in [address] [address] Lima Ponce R.N. Annual Medicare Examination Return (Primary Dx) 01/02/2024 Clinical Communication Department of [facility], [facility], in [address] [address] Jagdish Astorga M.D. Diltiazem (Patient wants some clarifications on dosing. ); Health Maintenance items (Mammo and Pap) from Last 3 Months Immunizations Name Administration Dates Next Due H1N1 Inj 02/13/2009 Influenza high dose QV(65 ye ars or older) (PF) 12/21/2022 Influenza, Quadrivalent, Adj uvanted, Preservative Free 12/28/2021 Influenza, Seasonal, Injectable 01/05/2016,01/16 Influenza, Unspecified 12/13/2014,2013,02/23/2011,2009,12/20/2008,01/17/2008 PCV13 07/05/2014 PPSV23 07/08/2020 RZV (SHINGRIX) 01/25/2019,11/22/2018 SARS-COV-2 (COVID-19) - MODE RNA (12 YEARS AND OLDER) Fall Seasonal 12/19/2023,02/27/2023 SARS-COV-2 (COVID-19) - PFIZ ER TS(Discontinued)(12 years or older) 07/04/2021 Tdap 11/10/2023,08/17/2012,05/28/2011 influenza trivalent high dos e (HD)(PF) 11/10/2023 influenza vaccine QV(FLUBLOK ) (18 years or older) (PF) 12/27/2018 influenza vaccine quad (FLUZONE/FLUARIX) (6 months and older)(PF) 01/13/2021,12/20/2019 Family History Medical History Relation Name Comments Arthritis Brother 1 Lamine Hearing loss Brother 1 Lamine No Known Problems Brother 2 Gorge Abnormal Pap Smear Daughter [place] Alzheimer's disease Father Dad Arthritis Father Dad Dementia Father Dad Breast cancer Father's Sister Arthritis Mother Mom Breast cancer Mother Mom Cervical cancer Mother Mom Thyroid dysfunction Mother Mom Breast cancer Mother's Sister Breast cancer Niece Marilee Triple Negativ e Breast Cancer Brain Tumor Sister Eloisa Glioblstoma Relation Name Status Comments Brother 1 Lamine Alive Brother 2 Gorge Alive Daughter [place] Alive Father Dad (Age 74) Father's Sister Mother Mom Alive Mother's Sister Niece Marilee Alive Sister Eloisa (Age 64) Social History Tobacco Use Types Packs/Day Years Used Date Smoking Tobacco: Never Smokeless Tobacco: Never Tobacco Cessation:Counseling Given: Not Answered Alcohol Use Standard Drinks/Week Comments Yes 0 (1 standard drink = 0.6 oz pur e alcohol) Social [employer] Utilities Answer Date Recorded In the past 12 months has e electric, gas, oil, or water Social [employer] threatened to shut off services in your [...] often do you attend chur ch or alevism services? More than 4 times per year 02/11/2020 Do you belong to any clubs o r organizations such as scientologist groups, unions, fraternal or athletic groups, or [...] Answer Date Recorded PHQ-2 Score 0 01/02/2024 [facility] - Occupational Stress Questionnaire Answer Date [...] Answer Date Recorded Dental: Regular Dentist Yes 12/26/20 23 Employment Answer Date Recorded Employment status Retired 03/08/2023 Housing Stability Answer Date Recorded What is your living situation today? I have a [facility] place to live 01/02/2024 Education Answer Date Recorded What is the highest level of school you have completed or the highest degree you have received? 12th grade 02/11/2020 Comments No Sex and Gender Information Value Date Recorded Sex Assigned at Female 03/08/2023 1:21 PM BUSINESS SUPPORT ASSISTANT Legal Sex Female 5:23 AM BUSINESS SUPPORT ASSISTANT Gender Identity Female 03/30/2020 2:08 PM BUSINESS SUPPORT ASSISTANT Sexual Orientation Straight 03/30/2020 2: 08 PM BUSINESS SUPPORT ASSISTANT Last Filed Vital Signs Vital Sign Reading Time Taken Comments Blood Pressure 117/73 01/02/2024 11:19 AM CDT average of 3 Pulse 59 01/02/2024 11:19 AM CDT Temperature 36.3 C (97.3 F) 01/02/2024 11:19 AM CDT Respiratory Rate 16 01/02/2024 11:1 9 AM CDT Oxygen Saturation 96% 03/08/2023 2:1 6 PM BUSINESS SUPPORT ASSISTANT Inhaled Oxygen Concentration - - Weight 76.1 kg (167 lb 12.3 oz) 01/02/2024 11:19 AM CDT Height 164.5 cm (5' 4.76) 01/02/2024 1 1:19 AM CDT Body Mass Index 28.12 01/02/2024 11:19 AM CDT Plan of Treatment Upcoming Encounters Date Type Department Care Team (Late st Contact Info) Description 03/30/2024 9:00 AM BUSINESS SUPPORT ASSISTANT Office Visit Department of Cardiovascular Diseases in [place], [place] [address] [place] [address] Aris Martinez M.D. [address] [place] [address] Health Maintenance Due Date Last Done Comments CT Colonography 1955 Cologuard 1955 FIT 1955 Hepatitis C Screening 1955 Depression Screening (Annual PHQ-2) 03/14/2024 Fall Risk Screen (Annual) 03/14/2024 Visit: Annual, age 65+ (or Medicare and <65) 04/18/2024 04/18/2023 Visit: Medicare Annual Wellness 01/02/2025 01/02/2024 Mammogram 02/16/2025 02/17/2024, 07/2022 (Performed elsewhere), 02/14/2023, Additional history exists Fasting Glucose for Diabetes Screening 01/27/2026 01/27/2023, 07/05/2014, 05/14/2013, Additional history exists Colonoscopy 07/08/2026 07/08/2016, 06/13 (Performed elsewhere), 12/30/2005, Additional history exists Colorectal Cancer Screening 07/08/2026 DTaP,Tdap,and Td Vaccines (4 - Td or Tdap) 11/09/2033 11/10/2023, 08/17/2012, 05/28/2011 Zoster Vaccines Completed 01/25/2019, 11/22/2018 Pneumococcal vaccine (50+ years) Completed 07/08/2020, 07/05/2014 Cervical/Vaginal Cancer Screening Discontinued 07/16/2020, 06/16/2016, 12/31/2012, Additional history exists Influenza Vaccine Completed 11/10/2023, , 12/28/2021, Additional history exists COVID-19 Vaccine Completed 12/19/2023, , 12/28/2021, Additional history exists IPV Vaccines Aged Out No longer eligi ble based on patient's age to complete this topic Procedures Procedure Name Priority Date/Time Associated Diagnosis Comments HOLTER MONITOR - IN CLINIC SENIOR FRONT END DEVELOPER Routine 03/22/2024 10:31 AM BUSINESS SUPPORT ASSISTANT Shortness Of Breath Beat Premature Ventricular Mitral Valve Prolapse (TTE) 2D ECHO DOPPLER COLOR Routine 03/21/2024 10:16 AM BUSINESS SUPPORT ASSISTANT Shortness Of Breath Beat Premature Ventricular Mitral Valve Prolapse ECG Routine 03/21/2024 9:32 AM BUSINESS SUPPORT ASSISTANT Shortness Of Breath Beat Premature Ventricular Mitral Valve Prolapse BI BREAST SCREENING BILATERAL WITH TOMOSYNTHESIS RAD - Routine (most inpatients and all outpatients) 02/17/2024 11:10 AM BUSINESS SUPPORT ASSISTANT Screening Mammogram Breast Cancer BASIC METABOLIC PANEL, S/P Routine 01/27/2023 2:14 PM BUSINESS SUPPORT ASSISTANT Shortness Of Breath COLONOSCOPY Routine 07/08/2016 from Last 3 Months or Most Recently Relevant to Health Maintenance Results * (TTE) 2D ECHO DOPPLER COLOR (03/21/2024 10:16 AM BUSINESS SUPPORT ASSISTANT) Ejection Fraction 63 MC CV EIMS Mid-Ascending Aorta 35 MC CV EIMS LV Mass Index 98 MC CV EIMS LV End-Diastolic Diameter 54 MC CV EIMS LV End-Systolic Diameter 35 MC CV EIMS LV End-Diastolic Volume 124 MC CV EIMS LV End-Systolic Volume 45 MC CV EIMS MV E Velocity 0.4 MC CV EIMS MV A Velocity 0.6 MC CV EIMS MV E/A 0.67 MC CV EIMS MV e' Velocity Medial 0.04 MC CV EIMS MV e' Velocity Lateral 0.06 MC CV EIMS MV E/e' Medial 10 MC CV EIMS MV E/e' Lateral 6.7 MC CV EIMS Left ventricular stroke volume index 48 MC CV EIMS Cardiac Output 4.45 MC CV EIMS Cardiac Index 2.43 MC CV EIMS LV Interventricular Septal Wall Thickness 9 MC CV EIMS LV Posterior Wall Thickness 9 MC CV EIMS LV Relative Wall Thickness 33 MC CV EIMS TAPSE 23 MC CV EIMS Tricuspid Annular S 0.12 MC CV EIMS TR Vmax 2.6 MC CV EIMS RA Pressure 5 MC CV EIMS RV Systolic Pressure 32 MC CV EIMS AV mean gradient 6 MC CV EIMS Aortic valve area 2.7 MC CV EIMS Aortic Valve Dimensionless Index 0.65 MC CV EIMS MV regurgitant volume 34 MC CV EIMS LA Volume Index 33 MC CV EIMS Aortic Valve Systolic Peak Velocity 1.7 MC CV EIMS Anatomical Region Laterality Modality Echocardiography 03/21/2024 8:41 AM BUSINESS SUPPORT ASSISTANT Impressions 03/21/2024 4:11 PM BUSINESS SUPPORT ASSISTANT Transthoracic outreach echo interpretation. LEFT VENTRICLE:Normal left ventricular chamber size. Abnormal left ventricular geometry with eccentric left ventricular hypertrophy. Calculated 2-D biplane volumetric left ventricular ejection fraction of 63%. No regional wall motion abnormalities. Grade 1/3 left ventricular diastolic dysfunction, consistent with low to normal left ventricular filling pressure at rest. RIGHT VENTRICLE:Normal right ventricular chamber size. Normal right ventricular systolic function. Estimated right ventricular systolic pressure 32 mmHg (right atrial pressure of 5 mmHg). ATRIA:Normal left atrial size. Left atrial volume index 33 ml/m2. Normal right atrial size. CARDIAC VALVES:Trileaflet aortic valve. Thickened aortic valve. Mild aortic valve regurgitation (2 jets). Mitral valve posterior leaflet prolapse. Mild-moderate mitral valve regurgitation. Mitral regurgitant volume (PISA) 34 ml. Mitral regurgitation ERO (PISA) 0.20 cm2. Normal pulmonary valve. Trivial pulmonary valve regurgitation. Normal tricuspid valve. Mild tricuspid valve regurgitation. OTHER ECHO FINDINGS:Normal inferior vena cava size with normal inspiratory collapse (>50%). Normal mid ascending aorta diameter of 35 mm. Abdominal aorta incompletely visualized. Normal abdominal aorta Doppler flow pattern. No atrial level shunt by color flow imaging. No intracardiac mass or thrombus, but the left atrial appendage cannot be visualized adequately with transthoracic echo to exclude thrombus in this location. No pericardial effusion. For the complete report, see the Order-Level Documents. Narrative 03/21/2024 4:11 PM BUSINESS SUPPORT ASSISTANT For the complete report, see the Order-Level Documents. Hemodynamics Heart Rate: 51 BPM Blood Pressure: 127 / 74 mmHg ECG: Sinus rhythm Final Impressions 1. Transthoracic outreach echo interpretation. 2. Mitral valve posterior leaflet prolapse. No clear flail identified. No evidence of mitral annular disjunction (challenging visualization during the complete cardiac cycle) or Pikelhaube sign. 3. Mild-moderate mitral valve regurgitation. 4. Normal left ventricular chamber size, no regional wall motion abnormalities, calculated 2-D biplane volumetric ejection fraction of 63%. 5. Abnormal left ventricular geometry with eccentric left ventricular hypertrophy, grade 1/3 diastolic dysfunction, consistent with low to normal filling pressure at rest. 6. Normal right ventricular chamber size, normal systolic function, estimated right ventricular systolic pressure 32 mmHg (right atrial pressure of 5 mmHg). 7. Mild aortic valve regurgitation (2 jets). Trileaflet aortic valve. 8. No pericardial effusion. 9. Compared to the report of 07/10/2014 the following changes have occurred: prolapse in the current study is involves the posterior mitral valve leaflet; mildly increased mitral regurgitation; mild aortic regurgitation is now present. Side by side comparison of images performed. Procedure Note Aris Martinez M.D. - 03/21/2024 For the complete report, see the Order-Level Documents. Hemodynamics Heart Rate: 51 BPM Blood Pressure: 127 / 74 mmHg ECG: Sinus rhythm Final Impressions 1. Transthoracic outreach echo interpretation. 2. Mitral valve posterior leaflet prolapse. No clear flail identified. Noevidence of mitral annular disjunction (challenging visualization duringthe complete cardiac cycle) or Pikelhaube sign. 3. Mild-moderate mitral valve regurgitation. 4. Normal left ventricular chamber size, no regional wall motionabnormalities, calculated 2-D biplane volumetric ejection fraction of63%. 5. Abnormal left ventricular geometry with eccentric left ventricularhypertrophy, grade 1/3 diastolic dysfunction, consistent with low tonormal filling pressure at rest. 6. Normal right ventricular chamber size, normal systolic function,estimated right ventricular systolic pressure 32 mmHg (right atrialpressure of 5 mmHg). 7. Mild aortic valve regurgitation (2 jets). Trileaflet aortic valve. 8. No pericardial effusion. 9. Compared to the report of 07/10/2014 the following changes haveoccurred: prolapse in the current study is involves the posterior mitralvalve leaflet; mildly increased mitral regurgitation; mild aorticregurgitation is now present. Side by side comparison of imagesperformed. Findings Transthoracic outreach echo interpretation. LEFT VENTRICLE:Normal left ventricular chamber size. Abnormal leftventricular geometry with eccentric left ventricular hypertrophy.Calculated 2-D biplane volumetric left ventricular ejection fraction of63%. No regional wall motion abnormalities. Grade 1/3 left ventriculardiastolic dysfunction, consistent with low to normal left ventricularfilling pressure at rest. RIGHT VENTRICLE:Normal right ventricular chamber size. Normal rightventricular systolic function. Estimated right ventricular systolicpressure 32 mmHg (right atrial pressure of 5 mmHg). ATRIA:Normal left atrial size. Left atrial volume index 33 ml/m2. Normalright atrial size. CARDIAC VALVES:Trileaflet aortic valve. Thickened aortic valve. Mildaortic valve regurgitation (2 jets). Mitral valve posterior leafletprolapse. Mild-moderate mitral valve regurgitation. Mitral regurgitantvolume (PISA) 34 ml. Mitral regurgitation ERO (PISA) 0.20 cm2. Normalpulmonary valve. Trivial pulmonary valve regurgitation. Normal tricuspidvalve. Mild tricuspid valve regurgitation. OTHER ECHO FINDINGS:Normal inferior vena cava size with normal inspiratorycollapse (>50%). Normal mid ascending aorta diameter of 35 mm. Abdominalaorta incompletely visualized. Normal abdominal aorta Doppler flowpattern. No atrial level shunt by color flow imaging. No intracardiac massor thrombus, but the left atrial appendage cannot be visualized adequatelywith transthoracic echo to exclude thrombus in this location. Nopericardial effusion. For the complete report, see the Order-Level Documents. us Aris Martinez M.D. CV ECHO PROCEDURES Final R esult * ECG 12 Lead (03/21/2024 9:32 AM BUSINESS SUPPORT ASSISTANT) Ventricular Rate ECG/Min 48 BPM MUSE KS Interval 166 ms MUSE QRSD Interval 88 ms MUSE QT Interval 486 ms MUSE QTC Interval 434 ms MUSE P [place] 37 degrees MUSE R [place] -17 degrees MUSE T Wave [place] 20 degrees MUSE 03/21/2024 9:32 AM BUSINESS SUPPORT ASSISTANT 03/21/2024 9:52 AM BUSINESS SUPPORT ASSISTANT Impressions MUSE - 03/21/2024 9:52 AM BUSINESS SUPPORT ASSISTANT Marked sinus bradycardia Otherwise normal ECG When compared with ECG of 27-Jan-2023 14:18, Nonspecific T wave abnormality no longer evident in Lateral leads Vent. rate has decreased Reviewed by ISSAC Robertson Narrative Procedure Note Bolivar Inman M.D., M.P.H. - 03/21/2024 IMPRESSION: Marked sinus bradycardia Otherwise normal ECG When compared with ECG of 27-Jan-2023 14:18, Nonspecific T wave abnormality no longer evident in Lateral leads Vent. rate has decreased Reviewed by ISSAC Robertson Aris Martinez M.D. ECG ORDERABLES Final Resu lt MUSE NA * BI Breast Screening Bilateral with Tomosynthesis (02/17/2024 11:10 AM BUSINESS SUPPORT ASSISTANT) Anatomical Region Laterality Modality Breast, Breast Imaging RST L OS, Breast Imaging ARZ LOS, Breast Imaging FLA LOS Bilateral Mammography Impressions 02/17/2024 11:31 AM BUSINESS SUPPORT ASSISTANT Negative. RECOMMENDATION: Annual Screening Mammogram ASSESSMENT: BI-RADS: 1: Negative. Narrative 02/17/2024 11:31 AM BUSINESS SUPPORT ASSISTANT EXAM: BI BREAST SCREENING BILATERAL WITH TOMOSYNTHESIS Current study was evaluated with a Computer Aided Detection (CAD) system. INDICATION: Screening mammogram. COMPARISON: Prior exam(s) were available and reviewed for comparison. DENSITY: b. There are scattered areas of fibroglandular density. FINDINGS: No mammographic findings of malignancy. Procedure Note Jules Cadet M.D. - 02/17/2024 EXAM: BI BREAST SCREENING BILATERAL WITH TOMOSYNTHESIS Current study was evaluated with a Computer Aided Detection (CAD) system. INDICATION: Screening mammogram. COMPARISON: Prior exam(s) were available and reviewed for comparison. DENSITY: b. There are scattered areas of fibroglandular density. FINDINGS: No mammographic findings of malignancy. IMPRESSION: Negative. RECOMMENDATION: Annual Screening Mammogram ASSESSMENT: BI-RADS: 1: Negative. us Jagdish Astorga M.D. IMG BI PROCEDURES Final Resu lt * (ABNORMAL) Basic Metabolic Panel (01/27/2023 2:14 PM BUSINESS SUPPORT ASSISTANT) Potassium, P 4.2 3.6 - 5.2 mmol/L 01/27/2023 3:10 PM BUSINESS SUPPORT ASSISTANT OWAT Sodium, P 140 135 - 145 mmol/L 01/27/2023 3:10 PM BUSINESS SUPPORT ASSISTANT OWAT Chloride, P 104 98 - 107 mmol/L 01/27/2023 3:10 PM BUSINESS SUPPORT ASSISTANT OWAT Bicarbonate, P 20(L) 22 - 29 mmol/L 01/27/2023 3:10 PM BUSINESS SUPPORT ASSISTANT OWAT Anion Gap, P 16(H) 7 - 15 01/27/2023 3:10 PM BUSINESS SUPPORT ASSISTANT OWAT BUN (Blood Urea Nitrogen), P 24(H) 6 - 21 mg/dL 01/27/2023 3:10 PM BUSINESS SUPPORT ASSISTANT OWAT Creatinine 0.93 0.59 - 1.04 mg/dL 01/27/2023 3:10 PM BUSINESS SUPPORT ASSISTANT OWAT Estimated GFR (eGFR) 67 >=60 mL/min/BSA 01/27/2023 3:10 PM BUSINESS SUPPORT ASSISTANT OWAT Comment: Estimated GFR calculated using the 2020 CKD_EPI creatinine equation. Calcium, Total, P 9.6 8.8 - 10.2 mg/dL 01/27/2023 3:10 PM BUSINESS SUPPORT ASSISTANT OWAT Glucose, P 91 70 - 140 mg/dL 01/27/2023 3:10 PM BUSINESS SUPPORT ASSISTANT OWAT Blood (Blood, Venous) 01/27/2023 2:14 PM BUSINESS SUPPORT ASSISTANT 01/27/2023 2:19 PM BUSINESS SUPPORT ASSISTANT us Kristine Mccarty P.A.-C., P.A. LAB BLOOD ADD-ON Ivonne l Result [facility] [address] [place] [address], [place] OWAT [facility] [place] [address] [place] [address] * Colonoscopy (07/08/2016) EXT Colonoscopy Normal - See Scanned Report for Details Normal - See Scanned Report for Details, HIMS - Report Received and Scanned Comment:Chart Review - 2016 Progress Note: colonoscopy on 07/08/[address] [facility]. It showed diverticulosis. us Historical Provider GI PROCEDURE ORDERABLES Ivonne l Result from Last 3 Months or Most Recently Relevant to Health Maintenance Insurance MEDICARE [facility] Care Teams Nurse Orthopaedic Relationship Specialty Start Date End Date Jagdish Astorga M.D. [address] [place] [phone] PCP - General Family Medicine 03/03/[address] [facility] [place], [place] Optometry 01/02/24
--- OUTSIDE RECORDS SUMMARY | 2024-03-25 08:20 | XMS_ITS | Encounter Summary ---
Author Organization [facility] Address [address] [place] [address] Care Team Providers Care Clay Pigeon Setter Name Role Phone Jagdish Astorga M.D. Primary Care Provider [phone] Reason for Referral * Outpatient (Routine) - Closed Specialty Diagnoses / Procedures Referred By Joey walsh Referred To Contact Diagnoses Shortness Of Breath Beat Premature Ventricular Mitral Valve Prolapse Procedures ECG 12 Lead Aris Martinez M.D. [address] [place] [address] Phone: tel: fax: [facility] Region Referral ID Status Reason Start Date Expiration Date Visits Re quested Visits Authorized [id number] Closed 03/03/2023 03/02/2024 1 1 EXPRESS CLERK Reason for Visit * Outpatient (Routine) - Closed Specialty Diagnoses / Procedures Referred By Joey walsh Referred To Contact Diagnoses Shortness Of Breath Beat Premature Ventricular Mitral Valve Prolapse Procedures ECG 12 Lead Aris Martinez M.D. [address] [place] [address] Phone: tel: fax: [facility] [place] Region Referral ID Status Reason Start Date Expiration Date Visits Re quested Visits Authorized [id number] Closed 03/03/2023 03/02/2024 1 1 Encounter Details Date Type Department Care Team (Latest Contact Info) Description 03/21/2024 8:41 AM RAIL EXPRESS CLERK - 03/21/2024 9:46 AM RAIL EXPRESS CLERK Hospital Encounter Department of Laboratory Medicine in [place], [place] [address] [place] [address] Aris Martinez M.D. [address] [place] [address] Shortness Of Breath; Beat Premature Ventricular; Mitral Valve Prolapse Discharge Disposition: Home or Self Care Social History Tobacco Use Types Packs/Day Years Used Date Smoking Tobacco: Never Smokeless Tobacco: Never Alcohol Use Standard Drinks/Week Comments Yes 0 (1 standard drink = 0.6 oz pur e alcohol) Social [employer] Utilities Answer Date Recorded In the past 12 months has [employer], gas, oil, or water [employer] threatened to shut off services in your [...] 02/11/2020 How often do you attend chur or denominational services? More than 4 times per year 02/11/2020 Do you belong to any clubs o r organizations such as judaism groups, unions, fraternal or athletic groups, or [...] Answer Date Recorded PHQ-2 Score 0 01/02/2024 [facility] - Occupational Stress Questionnaire Answer Date Recorded [...] your living situation today? [facility] 01/02/2024 Education Answer Date Recorded What is the highest level of school you have completed or the highest degree you have received? 12th grade 02/11/2020 Comments No Sex and Gender Information Value Date Recorded Sex Assigned at Female 03/08/2023 1:21 PM RAIL EXPRESS CLERK Legal Sex Female 5:23 AM RAIL EXPRESS CLERK Gender Identity Female 03/30/2020 2:08 PM RAIL EXPRESS CLERK Sexual Orientation Straight 03/30/2020 2: 08 PM RAIL EXPRESS CLERK documented as of this encounter Medications at Time of Discharge dilTIAZem CD (Cardizem CD) 180 mg 24 hr capsule Take 1 capsule (180 mg total) by mouth daily. 90 capsule 3 01/03/2024 estradioL (Estrace) 0.5 mg tablet 0.5 g by other route. 01/05/2022 fluticasone (VERAMYST) 27.5 mcg/actuation nasal spray Administer 1 spray into each nostril daily. 9.1 mL 1 04/18/2023 documented as of this encounter Plan of Treatment Upcoming Encounters Date Type Department Care Team (Late st Contact Info) Description 03/30/2024 9:00 AM RAIL EXPRESS CLERK Office Visit Department of Cardiovascular Diseases in [place], [place] [address] [place] [address] Aris Martinez M.D. [address] [place] [address] documented as of this encounter Procedures Procedure Name Priority Date/Time Associated Diagnosis Comments ECG Routine 03/21/2024 9:32 AM RAIL EXPRESS CLERK Shortness Of Breath Beat Premature Ventricular Mitral Valve Prolapse documented in this encounter Results * ECG 12 Lead (03/21/2024 9:32 AM RAIL EXPRESS CLERK) Ventricular Rate ECG/Min 48 BPM MUSE [place] Interval 166 ms MUSE QRSD Interval 88 ms MUSE QT Interval 486 ms MUSE QTC Interval 434 ms MUSE P [place] 37 degrees MUSE R [place] -17 degrees MUSE T Wave [place] 20 degrees MUSE 03/21/2024 9:32 AM RAIL EXPRESS CLERK 03/21/2024 9:52 AM RAIL EXPRESS CLERK Impressions MUSE - 03/21/2024 9:52 AM RAIL EXPRESS CLERK Marked sinus bradycardia Otherwise normal ECG When [...] rate has decreased Reviewed by ISSAC Robertson us Aris Martinez M.D. ECG ORDERABLES Final Resu lt MUSE NA documented in this encounter Visit Diagnoses Diagnosis Shortness Of Breath Beat Premature Ventricular Mitral Valve Prolapse documented in this encounter Additional Health Concerns Assessment Noted Time PHQ-9 Depression Total Score: 4 02/01/20 15 10:13 AM RAIL EXPRESS CLERK documented as of this encounter Care Teams Clay Pigeon Setter Relationship Specialty Start Date End Date Jagdish Astorga M.D. [address] [place] [phone] PCP - General Family Medicine 03/03/23 [facility] [place], [place] Optometry 01/02/24 documented as of this encounter
--- OUTSIDE RECORDS SUMMARY | 2024-03-25 08:20 | XMS_ITS | Referral Summary ---
Author Organization [facility] Address [address] [place] [address] Care Team Providers Care Quotation Clerk Name Role Phone Jagdish Astorga M.D. Primary Care Provider [phone] Source Comments Patient records contain information from all sites at [facility]. For routine questions regarding patient records, call [phone] during business hours, M-F 8:00 AM - 5:00 PM Central Time. Record requests for emergency care only can be directed to [phone] at any time.[facility] Encounters Date Type Department Care Team Description 03/24/2024 Nurse Triage Department of Family Medicine, [facility], in [address] [phone] Lilly Alejo R.N. Abdominal Pain 03/21/2024 8:41 AM LEAF BINNER - 03/21/2024 9:46 AM LEAF BINNER Hospital Encounter Department of Laboratory Medicine in [address] [phone] Aris Martinez M.D. Shortness Of Breath; Beat Premature Ventricular; Mitral Valve Prolapse Discharge Disposition: Home or Self Care 03/21/2024 9:47 AM LEAF BINNER - 03/21/2024 11:59 PM LEAF BINNER Hospital Encounter Department of Cardiovascular Diseases in [address] [address] Aris Martinez M.D. Shortness Of Breath; Beat Premature Ventricular; Mitral Valve Prolapse Discharge Disposition: Home or Self Care 03/21/2024 8:41 AM LEAF BINNER - 03/21/2024 9:46 AM LEAF BINNER Hospital Encounter Department of Cardiovascular Diseases in [address] [address] Aris Martinez M.D. Shortness Of Breath; Beat Premature Ventricular; Mitral Valve Prolapse Discharge Disposition: Home or Self Care 02/17/2024 9:46 AM LEAF BINNER - 02/17/2024 11:59 PM LEAF BINNER Hospital Encounter Department of Radiology in [address] [address] Jagdish Astorga M.D. Screening Mammogram Breast Cancer Discharge Disposition: Home or Self Care 01/16/2024 Orders Only Department of Family Medicine, [facility], in [address] [address] Jagdish Astorga M.D. Osteoporosis (Primary Dx) 01/02/2024 Clinical Communication Department of [facility], [facility], in [address] [address] Jagdish Astorga M.D. Diltiazem (Patient wants some clarifications on dosing. ); Health Maintenance items (Mammo and Pap) 01/02/2024 10:30 AM CDT Office Visit Department of Family Medicine, [facility], in [address] [address] Lima Ponce R.N. Annual Medicare Examination Return (Primary Dx) from Last 3 Months Allergies No known active allergies Medications estradioL (Estrace) 0.5 mg tablet 0.5 g by other route. Active fluticasone (VERAMYST) 27.5 mcg/actuation nasal spray [...] Esophagitis 07/25/2014 04/01/2020 Neuritis Optic 07/23/2014 04/01/2020 Immunizations Name Administration Dates Next Due H1N1 [...] quad (FLUZONE/FLUARIX) (6 months and older)(PF) 01/13/2021,12/20/2019 Social History Tobacco Use Types Packs/Day Years Used Date Smoking Tobacco: Never Smokeless Tobacco: Never Tobacco Cessation:Counseling Given: Not Answered Alcohol Use Standard Drinks/Week Comments Yes 0 (1 standard drink = 0.6 oz pur e alcohol) Social [facility] Utilities Answer Date Recorded In the past 12 months has th e [employer], gas, oil, or water [employer] threatened to shut off services in your [...] often do you attend chur ch or zoroastrianism services? More than 4 times per year 02/11/2020 Do you belong to any clubs o r organizations such as gnosticism groups, unions, fraternal or athletic groups, or [...] Answer Date Recorded PHQ-2 Score 0 01/02/2024 [facility] - Occupational Stress Questionnaire Answer Date Recorded [...] your living situation today? I have a [facility] place to live 01/02/2024 Education Answer Date Recorded What is the highest level of school you have completed or the highest degree you have received? 12th grade 02/11/2020 Comments No Sex and Gender Information Value Date Recorded Sex Assigned at Female 03/08/2023 1:21 PM LEAF BINNER Legal Sex Female 5:23 AM LEAF BINNER Gender Identity Female 03/30/2020 2:08 PM LEAF BINNER Sexual Orientation Straight 03/30/2020 2: 08 PM LEAF BINNER Last Filed Vital Signs Vital Sign Reading Time Taken Comments Blood Pressure 117/73 01/02/2024 11:19 AM CDT average of 3 Pulse 59 01/02/2024 11:19 AM CDT Temperature 36.3 C (97.3 F) 01/02/2024 11:19 AM CDT Respiratory Rate 16 01/02/2024 11:1 9 AM CDT Oxygen Saturation 96% 03/08/2023 2:1 6 PM LEAF BINNER Inhaled Oxygen Concentration - - Weight 76.1 kg (167 lb 12.3 oz) 01/02/2024 11:19 AM CDT Height 164.5 cm (5' 4.76) 01/02/2024 1 1:19 AM CDT Body Mass Index 28.12 01/02/2024 11:19 AM CDT Plan of Treatment Upcoming Encounters Date Type Department Care Team (Late st Contact Info) Description 03/30/2024 9:00 AM LEAF BINNER Office Visit Department of Cardiovascular Diseases in [place], [place] [address] [place] [address] Aris Martinez M.D. [address] [place] [address] Procedures Procedure Name Priority Date/Time Associated Diagnosis Comments HOLTER MONITOR - IN CLINIC DIRECTOR SPEECH LANGUAGE Routine 03/22/2024 10:31 AM LEAF BINNER Shortness Of Breath Beat Premature Ventricular Mitral Valve Prolapse (TTE) 2D ECHO DOPPLER COLOR Routine 03/21/2024 10:16 AM LEAF BINNER Shortness Of Breath Beat Premature Ventricular Mitral Valve Prolapse ECG Routine 03/21/2024 9:32 AM LEAF BINNER Shortness Of Breath Beat Premature Ventricular Mitral Valve Prolapse BI BREAST SCREENING BILATERAL WITH TOMOSYNTHESIS RAD - Routine (most inpatients and all outpatients) 02/17/2024 11:10 AM LEAF BINNER Screening Mammogram Breast Cancer BASIC METABOLIC PANEL, S/P Routine 01/27/2023 2:14 PM LEAF BINNER Shortness Of Breath COLONOSCOPY Routine 07/08/2016 from Last 3 Months or Most Recently Relevant to Health Maintenance Results * (TTE) 2D ECHO DOPPLER COLOR (03/21/2024 10:16 AM LEAF BINNER) Ejection Fraction 63 MC CV EIMS Mid-Ascending [...] Region Laterality Modality Echocardiography 03/21/2024 8:41 AM LEAF BINNER Impressions 03/21/2024 4:11 PM LEAF BINNER Transthoracic outreach echo interpretation. LEFT VENTRICLE:Normal left [...] the Order-Level Documents. Narrative 03/21/2024 4:11 PM LEAF BINNER For the complete report, see the Order-Level [...] by side comparison of imagesperformed. Findings Transthoracic [facility] echo interpretation. LEFT VENTRICLE:Normal left ventricular chamber [...] * ECG 12 Lead (03/21/2024 9:32 AM LEAF BINNER) Ventricular Rate ECG/Min [address] Interval 166 ms MUSE QRSD Interval 88 ms MUSE QT Interval 486 ms MUSE QTC Interval 434 ms MUSE P [place] 37 degrees MUSE R [place] -17 degrees MUSE T Wave [place] 20 degrees MUSE 03/21/2024 9:32 AM LEAF BINNER 03/21/2024 9:52 AM LEAF BINNER Impressions MUSE - 03/21/2024 9:52 AM LEAF BINNER Marked sinus bradycardia Otherwise normal ECG When [...] Screening Bilateral with Tomosynthesis (02/17/2024 11:10 AM LEAF BINNER) Anatomical Region Laterality Modality Breast, Breast Imaging RST L OS, Breast Imaging ARZ LOS, Breast Imaging FLA LOS Bilateral Mammography Impressions 02/17/2024 11:31 AM LEAF BINNER Negative. RECOMMENDATION: Annual Screening Mammogram ASSESSMENT: BI-RADS: 1: Negative. Narrative 02/17/2024 11:31 AM LEAF BINNER EXAM: BI BREAST SCREENING BILATERAL WITH TOMOSYNTHESIS [...] Annual Screening Mammogram ASSESSMENT: BI-RADS: 1: Negative. Jagdish Astorga M.D. IM BI PROCEDURES Final Resu lt * (ABNORMAL) Basic Metabolic Panel (01/27/2023 2:14 PM LEAF BINNER) Potassium, P 4.2 3.6 - 5.2 mmol/L 01/27/2023 3:10 PM LEAF BINNER OWAT Sodium, P 140 135 - 145 mmol/L 01/27/2023 3:10 PM LEAF BINNER OWAT Chloride, P 104 98 - 107 mmol/L 01/27/2023 3:10 PM LEAF BINNER OWAT Bicarbonate, P 20(L) 22 - 29 mmol/L 01/27/2023 3:10 PM LEAF BINNER OWAT Anion Gap, P 16(H) 7 - 15 01/27/2023 3:10 PM LEAF BINNER OWAT BUN (Blood Urea Nitrogen), P 24(H) 6 - 21 mg/dL 01/27/2023 3:10 PM LEAF BINNER OWAT Creatinine 0.93 0.59 - 1.04 mg/dL 01/27/2023 3:10 PM LEAF BINNER OWAT Estimated GFR (eGFR) 67 >=60 mL/min/BSA 01/27/2023 3:10 PM LEAF BINNER OWAT Comment: Estimated GFR calculated using the 2020 CKD_EPI creatinine equation. Calcium, Total, P 9.6 8.8 - 10.2 mg/dL 01/27/2023 3:10 PM LEAF BINNER OWAT Glucose, P 91 70 - 140 mg/dL 01/27/2023 3:10 PM LEAF BINNER OWAT Blood (Blood, Venous) 01/27/2023 2:14 PM LEAF BINNER 01/27/2023 2:19 PM LEAF BINNER us Kristine Mccarty P.A.-C., P.ASheng LAB BLOOD ADD-ON Ivonne l Result [facility] [address] [place] [address], [facility] in [place] [address] [place] [address] * Colonoscopy (07/08/2016) EXT Colonoscopy Normal - See Scanned Report for Details Normal - See Scanned Report for Details, HIMS - Report Received and Scanned Comment:Chart Review - 2016 Progress Note: colonoscopy on 07/08/2016 at [facility]. It showed diverticulosis. Historical Provider GI PROCEDURE ORDERABLES Ivonne l Result from Last 3 Months or Most Recently Relevant to Health Maintenance Insurance MEDICARE [facility] Care Teams Quotation Clerk Relationship Specialty Start Date End Date Jagdish Astorga M.D. [address] [place] [phone] PCP - General Family Medicine 03/03/23 [facility] [place], [place] Optometry 01/02/24
--- OUTSIDE RECORDS SUMMARY | 2024-03-25 08:20 | XMS_ITS | Encounter Summary ---
Author Organization [facility] Address [address] [place] [address] Care Team Providers Care Salesperson Recreational Vehicles Name Role Phone Jagdish Astorga M.D. Primary Care Provider [phone] Reason for Referral * Cardiovascular-Diagnostic (Routine) - Closed Specialty Diagnoses / Procedures Referred By Joey walsh Referred To Contact Diagnoses Shortness Of Breath Beat Premature Ventricular Mitral Valve Prolapse Procedures Echo Transthoracic (TTE) Aris Martinez M.D. [address] [place] [address] Phone: tel: fax: [facility] Region Referral ID Status Reason Start Date Expiration Date Visits Re quested Visits Authorized [id number] Closed 03/03/2023 03/02/2024 1 1 . [facility] Reason for Visit * Cardiovascular-Diagnostic (Routine) - Closed Specialty Diagnoses / Procedures Referred By Joey walsh Referred To Contact Diagnoses Shortness Of Breath Beat Premature Ventricular Mitral Valve Prolapse Procedures Echo Transthoracic (TTE) Aris Martinez M.D. [address] [place] [address] Phone: tel: fax: [facility] Region Referral ID Status Reason Start Date Expiration Date Visits Re quested Visits Authorized [id number] Closed 03/03/2023 03/02/2024 1 1 Encounter Details Date Type Department Care Team (Latest Contact Info) Description 03/21/2024 8:41 AM CARDIOVASCULAR SURGEON - 03/21/2024 9:46 AM CARDIOVASCULAR SURGEON Hospital Encounter Department of Cardiovascular Diseases in [place], [place] [address] [facility] [place] [address] Aris Martinez M.D. [address] [place] [address] Shortness Of Breath; Beat Premature Ventricular; Mitral Valve Prolapse Discharge Disposition: Home or Self Care Social History Tobacco Use Types Packs/Day Years Used Date Smoking Tobacco: Never Smokeless Tobacco: Never Alcohol Use Standard Drinks/Week Comments Yes 0 (1 standard drink = 0.6 oz pur e alcohol) Social [employer] Utilities Answer Date Recorded In the past 12 months has [employer], gas, oil, or water [employer] threatened to shut off services in your [...] How often do you attend chur or congregational services? More than 4 times per year 02/11/2020 Do you belong to any clubs o r organizations such as samaritan groups, unions, fraternal or athletic groups, or [...] Answer Date Recorded PHQ-2 Score 0 01/02/2024 [facility] of Occupat ional [facility] - Occupational Stress Questionnaire Answer Date [...] money to buy more. Never true 01/02/20 Within the past 12 months, t he [...] your living situation today? I have a [facility] place to live 01/02/2024 Education Answer Date Recorded What is the highest level of school you have completed or the highest degree you have received? 12th grade 02/11/2020 Comments No Sex and Gender Information Value Date Recorded Sex Assigned at Female 03/08/2023 1:21 PM CARDIOVASCULAR SURGEON Legal Sex Female 5:23 AM CARDIOVASCULAR SURGEON Gender Identity Female 03/30/2020 2:08 PM CARDIOVASCULAR SURGEON Sexual Orientation Straight 03/30/2020 2: 08 PM CARDIOVASCULAR SURGEON documented as of this encounter Medications at [...] st Contact Info) Description 03/30/2024 9:00 AM CARDIOVASCULAR SURGEON Office Visit Department of Cardiovascular Diseases in [place], [place] [address] [place] [address] Aris Martinez M.D. [address] [place] [address] documented as of this encounter Procedures Procedure Name Priority Date/Time Associated Diagnosis Comments (TTE) 2D ECHO DOPPLER COLOR Routine 03/21/2024 10:16 AM CARDIOVASCULAR SURGEON Shortness Of Breath Beat Premature Ventricular Mitral Valve Prolapse documented in this encounter Results * (TTE) 2D ECHO DOPPLER COLOR (03/21/2024 10:16 AM CARDIOVASCULAR SURGEON) Ejection Fraction 63 MC CV EIMS Mid-Ascending [...] Region Laterality Modality Echocardiography 03/21/2024 8:41 AM CARDIOVASCULAR SURGEON Impressions 03/21/2024 4:11 PM CARDIOVASCULAR SURGEON Transthoracic outreach echo interpretation. LEFT VENTRICLE:Normal left [...] the Order-Level Documents. Narrative 03/21/2024 4:11 PM CARDIOVASCULAR SURGEON For the complete report, see the Order-Level [...] M.D. CV ECHO PROCEDURES Final R esult documented in this encounter Visit Diagnoses Diagnosis Shortness Of Breath Beat Premature Ventricular Mitral Valve Prolapse documented in this encounter Additional Health Concerns Assessment Noted Time PHQ-9 Depression Total Score: 4 01/31/ 15 10:13 AM CARDIOVASCULAR SURGEON documented as of this encounter Care Teams Salesperson Recreational Vehicles Relationship Specialty Start Date End Date Jagdish Astorga M.D. [address] [place] [address] [place] [phone] PCP - General Family Medicine 03/03/23 [facility] [place], [place] Optometry 01/02/24 documented as of this encounter
--- OUTSIDE RECORDS SUMMARY | 2024-03-25 08:20 | XMS_ITS | Clinical Summary ---
Author Organization [facility] Address [address] [place] [address] Care Team Providers Care Buncher Machine Name Role Phone Unassigned, Provider Primary Care Provider Unava ilable Source Comments You are receiving this document as you are listed as the primary care provider,follow-up provider, or the patient has been referred to you for consultation.This is in compliance with the Medicare andW[facility] Cent[facility]aid EHR Incentive Program,which states Providers who transition their patient to another setting of careor provider of care or refers their patient to another provider of care shouldprovide summary care record for each transition of care or referral. [facility] Social History Tobacco Use Types Packs/Day Years Used Date Smoking Tobacco: Never Assessed Sex and Gender Information Value Date Recorded Sex Assigned at Not on file Gender Identity Not on file Sexual Orientation Not on file Plan of Treatment Health Maintenance Due Date Last Done Comments Colon Cancer Screening Plan Due 1955 Hep C Screening (Preventive Services) 1955 Mammogram 1955 Adult Preventive Visit 05/22/1973 Cholesterol 05/22/2000 Pneumococcal 65+ Yrs (2 - PPSV23 or PCV20) 05/22/2020 07/05/2014 DTaP/Tdap/Td (3 - Tdap) 08/17/2022 08/17/2012, 05/27 COVID-19 Vaccine ( season) 2023 06/12/2020, 05/22/2020 Influenza (#1) 2023 12/20/2019, 06/2019, 12/27/2018, Additional history exists RSV (1 - 1-dose 75+ series) 05/22/2030 Zoster/Shingles Completed 01/25/2019, 11/22/2018 HepA Aged Out No longer eligi ble based on patient's age to complete this topic HepB Aged Out No longer eligi ble based on patient's age to complete this topic Hib Aged Out No longer eligi ble based on patient's age to complete this topic IPV (Polio) Aged Out No longer eligi ble based on patient's age to complete this topic MCV4 Aged Out No longer eligi ble based on patient's age to complete this topic Care Teams Buncher Machine Relationship Specialty Start Date End Date Unassigned, Provider [address] [place] [address] PCP - General 02/20/00
--- OUTSIDE RECORDS SUMMARY | 2024-03-25 08:20 | XMS_ITS | Encounter Summary ---
Author Organization [facility] Address [address] [place] [address] Care Team Providers Care Cable Rigger Name Role Phone Jagdish Astorga M.D. Primary Care Provider [phone] Reason for Referral * Outpatient (Routine) - Closed Specialty Diagnoses / Procedures Referred By Joey walsh Referred To Contact Diagnoses Shortness Of Breath Beat Premature Ventricular Mitral Valve Prolapse Procedures ECG Heart rhythm monitor (Holter) Aris Martinez M.D. [address] [place] [address] Phone: tel: fax: [facility] Region Referral ID Status Reason Start Date Expiration Date Visits Re quested Visits Authorized [id number] Closed 03/03/2023 03/02/2024 1 1 [facility] Reason for Visit * Outpatient (Routine) - Closed Specialty Diagnoses / Procedures Referred By Joey walsh Referred To Contact Diagnoses Shortness Of Breath Beat Premature Ventricular Mitral Valve Prolapse Procedures ECG Heart rhythm monitor (Holter) Aris Martinez M.D. [address] [place] [address] Phone: tel: fax: [facility] Region Referral ID Status Reason Start Date Expiration Date Visits Re quested Visits Authorized [id number] Closed 03/03/2023 03/02/2024 1 1 Encounter Details Date Type Department Care Team (Latest Contact Info) Description 03/21/2024 9:47 AM DRY CLEANING MANAGER - 03/21/2024 11:59 PM DRY CLEANING MANAGER Hospital Encounter Department of Cardiovascular Diseases in [place], [place] [address] [facility] [place] [address] Aris Martinez M.D. [address] [place] [address] Shortness Of Breath; Beat Premature Ventricular; Mitral Valve Prolapse Discharge Disposition: Home or Self Care Social History Tobacco Use Types Packs/Day Years Used Date Smoking Tobacco: Never Smokeless Tobacco: Never Alcohol Use Standard Drinks/Week Comments Yes 0 (1 standard drink = 0.6 oz pur e alcohol) Social [employer] Utilities Answer Date Recorded In the past 12 months has [employer], gas, oil, or water [employer] threatened to shut off services in your [...] How often do you attend chur or islam services? More than 4 times per year 02/11/2020 Do you belong to any clubs o r organizations such as yazdanism groups, unions, fraternal or athletic groups, or [...] Answer Date Recorded PHQ-2 Score 0 01/02/2024 [facility] - Occupational Stress Questionnaire Answer Date [...] Sex Assigned at Female 03/08/2023 1:21 PM DRY CLEANING MANAGER Legal Sex Female 5:23 AM DRY CLEANING MANAGER Gender Identity Female 03/30/2020 2:08 PM DRY CLEANING MANAGER Sexual Orientation Straight 03/30/2020 2: 08 PM DRY CLEANING MANAGER documented as of this encounter Medications at [...] st Contact Info) Description 03/30/2024 9:00 AM DRY CLEANING MANAGER Office Visit Department of Cardiovascular Diseases in [place], [place] [address] [place] [address] Aris Martinez M.D. [address] [place] [address] Pending Results Name Type Priority Associated Diagnoses Date /Time ECG Heart rhythm monitor (Holter) Cardiac Services Routine Shortness Of Breath Beat Premature Ventricular Mitral Valve Prolapse 03/22/2024 10:31 AM DRY CLEANING MANAGER documented as of this encounter Procedures Procedure Name Priority Date/Time Associated Diagnosis Comments HOLTER MONITOR - IN CLINIC TRASH HAULER Routine 03/22/2024 10:31 AM DRY CLEANING MANAGER Shortness Of Breath Beat Premature Ventricular Mitral Valve Prolapse documented in this encounter Visit Diagnoses Diagnosis Shortness Of Breath Beat Premature Ventricular Mitral Valve Prolapse documented in this encounter Additional Health Concerns Assessment Noted Time PHQ-9 Depression Total Score: 4 02/01/20 15 10:13 AM DRY CLEANING MANAGER documented as of this encounter Care Teams Cable Rigger Relationship Specialty Start Date End Date Jagdish Astorga M.D. [address] [place] [address] PCP - General Family Medicine 03/03/23 [facility] [place], [place] Optometry 01/02/24 documented as of this encounter
--- OUTSIDE RECORDS SUMMARY | 2024-03-25 08:20 | XMS_ITS | Encounter Summary ---
Author Organization [facility] Address [address] [place] [address] Care Team Providers Care Virology Teacher Name Role Phone Jagdish Astorga M.D. Primary Care Provider [phone] Reason for Referral * Outpatient (Routine) - Closed Specialty Diagnoses / Procedures Referred By Joey walsh Referred To Contact Diagnoses Screening Mammogram Breast Cancer Procedures BI Breast Screening Bilateral with Tomosynthesis Jagdish Astorga M.D. [address] [place] [phone] Phone: tel: fax: [facility] Region Referral ID Status Reason Start Date Expiration Date Visits Re quested Visits Authorized [id number] Closed 01/02/2024 01/01/2025 1 1 [facility] Reason for Visit * Outpatient (Routine) - Closed Specialty Diagnoses / Procedures Referred By Joey walsh Referred To Contact Diagnoses Screening Mammogram Breast Cancer Procedures BI Breast Screening Bilateral with Tomosynthesis Jagdish Astorga M.D. [address] [place] [phone] Phone: tel: fax: [facility] [place] Region Referral ID Status Reason Start Date Expiration Date Visits Re quested Visits Authorized [id number] Closed 01/02/2024 01/01/2025 1 1 Encounter Details Date Type Department Care Team (Latest Contact Info) Description 02/17/2024 9:46 AM STONE BREAKER - 02/17/2024 11:59 PM STONE BREAKER Hospital Encounter Department of Radiology in [place], [place] [address] [place] [phone] Jagdish Astorga M.D. [address] [place] [phone] Screening Mammogram Breast Cancer Discharge Disposition: Home or Self Care Social History Tobacco Use Types Packs/Day Years Used Date Smoking Tobacco: Never Smokeless Tobacco: Never Alcohol Use Standard Drinks/Week Comments Yes 0 (1 standard drink = 0.6 oz pur e alcohol) Social [employer] Utilities Answer Date Recorded In the past 12 months has [employer], gas, oil, or water [employer] threatened to shut off services in your [...] often do you attend chur ch or latter day services? More than 4 times per year 02/11/2020 Do you belong to any clubs o r organizations such as gnosticist groups, unions, fraternal or athletic groups, or [...] Date Recorded PHQ-2 Score 0 01/02/2024 [facility] Occupat ional [facility] - Occupational Stress Questionnaire Answer Date Recorded [...] your living situation today? [facility] 01/02/2024 Education Answer Date Recorded What is the highest level of school you have completed or the highest degree you have received? 12th grade 02/11/2020 Comments No Sex and Gender Information Value Date Recorded Sex Assigned at Female 03/08/2023 1:21 PM STONE BREAKER Legal Sex Female 5:23 AM STONE BREAKER Gender Identity Female 03/30/2020 2:08 PM STONE BREAKER Sexual Orientation Straight 03/30/2020 2: 08 PM STONE BREAKER documented as of this encounter Medications at [...] st Contact Info) Description 03/30/2024 9:00 AM STONE BREAKER Office Visit Department of Cardiovascular Diseases in [place], [place] [address] [place] [address] Aris Martinez M.D. [address] [place] [address] documented as of this encounter Procedures Procedure Name Priority Date/Time Associated Diagnosis Comments BI BREAST SCREENING BILATERAL WITH TOMOSYNTHESIS RAD - Routine (most inpatients and all outpatients) 02/17/2024 11:10 AM STONE BREAKER Screening Mammogram Breast Cancer documented in this encounter Results * BI Breast Screening Bilateral with Tomosynthesis (02/17/2024 11:10 AM STONE BREAKER) Anatomical Region Laterality Modality Breast, Breast Imaging RST L OS, Breast Imaging ARZ LOS, Breast Imaging FLA LOS Bilateral Mammography Impressions 02/17/2024 11:31 AM STONE BREAKER Negative. RECOMMENDATION: Annual Screening Mammogram ASSESSMENT: BI-RADS: 1: Negative. Narrative 02/17/2024 11:31 AM STONE BREAKER EXAM: BI BREAST SCREENING BILATERAL WITH TOMOSYNTHESIS [...] M.D. IMG BI PROCEDURES Final Resu lt documented in this encounter Visit Diagnoses Diagnosis Screening Mammogram Breast Cancer documented in this encounter Additional Health Concerns Assessment Noted Time PHQ-9 Depression Total Score: 4 02/01/20 15 10:13 AM STONE BREAKER documented as of this encounter Care Teams Virology Teacher Relationship Specialty Start Date End Date Jagdish Astorga M.D. [address] [place] [phone] PCP - General Family Medicine 03/03/[address] [facility] [place], [place] Optometry 01/02/24 documented as of this encounter
--- OUTSIDE RECORDS SUMMARY | 2024-03-25 08:20 | XMS_ITS | Clinical Summary ---
Author Organization [facility] Address [place], [place] [address] Care Team Providers Care Photovoltaic Power Systems Engineer Name Role Phone Alison Cook Primary Care Provider [phone] Allergies Active Allergy Reactions Criticality Noted Date Comments Trazodone *Unknown 07/12/2014 Medications Omeprazole 20 mg tablet Take 20 mg by mouth once daily. Active citalopram (CELEXA) 20 mg tabletIndicatio ns:vasomotor symptoms associated with menopause Take 20 mg by mouth once daily. Indications: VASOMOTOR SYMPTOMS ASSOCIATED WITH MENOPAUSE Active Social History Tobacco Use Types Packs/Day Years Used Date Smoking Tobacco: Never Alcohol Use Standard Drinks/Week Comments Yes 0 (1 standard drink = 0.6 oz pur e alcohol) social Comments No Sex and Gender Information Value Date Recorded Sex Assigned at Not on file Legal Sex Female 5:24 AM CLOTH WASHER Gender Identity Not on file Sexual Orientation Not on file Obstetrics History Last Filed Vital Signs Vital Sign Reading Time Taken Comments Blood Pressure 110/60 07/15/2014 2:00 PM CDT Pulse 53 07/15/2014 2:00 PM CDT Temperature 36.6 C (97.8 F) 07/15/2014 11:54 AM CDT Respiratory Rate 18 07/15/2014 2:00 PM CDT Oxygen Saturation 99% 07/15/2014 2:00 PM CDT Inhaled Oxygen Concentration - - Weight 76.2 kg (168 lb) 07/15/2014 11:54 AM CDT Height 165.1 cm (5' 5) 07/15/2014 11:54 AM CDT Body Mass Index 27.96 07/15/2014 11:54 AM CDT Plan of Treatment Health Maintenance Due Date Last Done Comments Tdap 05/22/1966 Depression screening for age 12+ 1967 BMI (ht and wt on same day) for age 18+ 05/22/1973 Hepatitis C screening for ag e 18-79 05/22/1973 Tetanus booster 1975 Colonoscopy through age 75 05/22/2000 Lipids for age 45-75 05/22/2000 Mammogram for age 45-75 05/22/2000 Pneumococcal series for age 50+ (1 of 1 - PCV) 05/22/2005 Zoster (shingles) series for age 50+ (1 of 2) 05/22/2005 DEXA/DXA scan for age 65+ 05/22/2020 COVID-19 vaccine series (2023- season) 2023 12/28/2021, 12/16/2020, 06/12/2020, Additional history exists Influenza for age 65+ 11/13/2023 RSV vaccine for adults or (1 - 1-dose 75+ series) 05/22/2030 [place] [address] [facility] [employer] [place] [address] Advance Directives * Full Code (Latest Code Status on File) Date Activated Date Inactivated Comments 07/15/2014 11:12 AM 07/15/2014 4:29 PM Care Teams Photovoltaic Power Systems Engineer Relationship Specialty Start Date End Date Alison Cook MBBS PCP - General Internal Medicine 08/31/13
[2024-03-25 08:39] VITALS: BP 107/85; PULSE 61; RESP 18; TEMP 37.2; O2SAT 97; BMI 25.1
[2024-03-25 08:46] LABS: Appearance Urine Clear (Clear); Bilirubin Urine 2+ (Negative); Blood Urine 2+ (Negative); Color Urine Yellow (Yellow); Glucose Urine Negative (Negative); Ketones Urine 1+ (Negative); Leukocyte Esterase Urine Negative (Negative); Nitrite Urine Negative (Negative); Protein Urine 2+ (Negative); Specific Gravity Urine >= 1.030 (1.000-1.030); pH Urine 5.5 (5.0-8.5)
[2024-03-25 09:02] LABS: Amorphous Sediment Urine Moderate; Bacteria Urine Few; Fine Granular Casts Urine Moderate; RBC Urine 0-2 (0-2); Squamous Epithelial Cell Urine Moderate (None-Few); WBC Urine 0-2 (0-5)
[2024-03-25 09:03] LABS: Mucus Urine Many
--- NOTE | 2024-03-25 09:17 | CRLHL7_ITS ---
For Patients: As a result of the Century Cures Act, medical imaging exams and procedure reports are released immediately into your electronic medical record. You may view this report before your referring provider. If you have questions, please contact your health care provider. INDICATION: Abdominal pain. History of diverticulitis. TECHNIQUE: CT abdomen and pelvis acquired with IV contrast. 81 mL IV Isovue 370. COMPARISON: CT of the abdomen and pelvis 03/17/2021. FINDINGS: Lower chest: Mild atelectasis in the lung bases. Liver: Unremarkable. Gallbladder and bile ducts: Unremarkable. Spleen: Unremarkable. Pancreas: Unremarkable. Adrenal glands: Unremarkable. Kidneys: No kidney or ureteral stones and no hydronephrosis. No renal lesions. GI tract: Colonic diverticulosis. There is acute sigmoid colonic diverticulitis with short segment wall thickening and surrounding mesenteric stranding. No loculated fluid collection or free air. Normal caliber small bowel appendix is normal. Vascular structures: Normal caliber abdominal aorta. Lymph nodes: Unremarkable. Miscellaneous: No ascites. No free air. Pelvic Organs: Unremarkable. Bones: Mild degenerative changes in the hips. No acute osseous abnormality. No suspicious bone lesion. IMPRESSION: Acute sigmoid colonic diverticulitis. No evidence of abscess formation or extraluminal free air. If not up-to-date recommend follow-up with colonoscopy after resolution of acute symptoms to exclude underlying lesion. Please note that all CT scans at this facility use dose modulation, iterative reconstruction, and/or weight-based dosing when appropriate to reduce radiation dose to as low as reasonably achievable. Dictated by Nithya Odom MD @ 03/25/2024 10:48:25 AM (Electronically Signed)
--- NOTE | 2024-03-25 09:18 | ED_ITS ---
HPI - Abdominal Pain General Date Seen: 03/25/24 Chief Complaint: Abdominal Pain Stated Complaint: abdominal pain Time Seen by Provider: 03/25/24 08:37 Source: patient Mode of arrival: ambulatory Limitations: no limitations History of Present Illness HPI narrative: Patient is a 68-year-old female presenting to the emergency department for abdominal pain. She states the abdominal pain started 4 days ago. It is mostly been her lower abdomen and is started on her left lower abdomen. She states she has had diverticulitis couple times a for this felt similar. She states the pain seemed to improve but came back again yesterday. She now notices it to her right lower quadrant also. Has had no previous abdominal surgeries. Had fevers a couple days ago but none in the past 2 days. Also had chills at that time. Last ate at 03:00 today because she was hungry and had two eggs. Had nausea a few days ago but none since. Has not had any vomiting. Also also been having watery of soft diarrhea her most recent bowel movement was mostly mucus she states. This is the 1st time she has ever noticed mucus in her stool. No previous abdominal or pelvic surgeries. Denies chest pain, shortness of breath, lightheadedness, weakness, numbness, dizziness, headache. She does states she feels little bit dehydrated. Note she was peeing much more frequently earlier this week and was having some dysuria but has not noticed the dysuria since the abdominal pain started. She is not sure if the pain is just masking her dysuria or not. Has had previous UTIs. Unsure if the symptoms were similar. Related Data Home Medications ?Medication ?Instructions ?Recorded ?Confirmed multivitamin (Daily Multi-Vitamin 1 tab PO QAM 05/13/22 03/25/24 tablet) fluticasone furoate 27.5 1 spray intranasal QDAY PRN 12/21/22 03/25/24 mcg/actuation nasal spray,suspension (Flonase Sensimist) diltiazem HCl 180 mg 180 mg PO DAILY 03/25/24 03/25/24 capsule,extended release 24 hr Previous Rx's ?Medication ?Instructions ?Recorded estradiol 0.01% (0.1 mg/gram) 0.5 g vaginal DAILY #42.5 grams 01/05/22 vaginal cream amoxicillin 875 mg-potassium 1 tab PO TID 5 days #15 tabs 03/25/24 clavulanate 125 mg tablet Allergies Allergy/AdvReac Type Severity Reaction Status Date / Time No Known Drug Allergies Allergy Verified 03/25/24 08:46 Review of Systems Status of ROS Reports: 10 or more systems reviewed and unremarkable except as noted in History and below [facility] Medical History History of diverticulitis ?Z87.19 - Personal history of other diseases of the digestive system (ICD-10) Surgical History History of hemilaminectomy (05/2005) ?Z98.890 - Other specified postprocedural states (ICD-10) Family History Father Alzheimers disease Mother Breast cancer Cervical cancer Aunt Breast cancer Aunt Alzheimers disease Social History Narrative: . Retired. Lifetime nonsmoker. No alcohol use. Smoking Status: Never smoker How often do you have a drink containing alcohol: monthly or less How many standard drinks containing alcohol do you have on a typical day: 1 or 2 How often do you have six or more drinks on one occasion: Never AUDIT-C Alcohol total score: 1 Non-prescribed substance use: denies use Exam Narrative: Exam Narrative: Const: Well-nourished, Well-developed, in mild distress Eyes: PERRL, no conjunctival injection, and symmetrical lids HENT: Atraumatic external nose and ears. Moist mucous membranes. Neck: Symmetric, trachea midline, No thyromegaly. CVS: RRR, No murmurs or gallops. Peripheral pulses 2+ and equal in all extremities RESP: Unlabored respiratory effort. Clear to auscultation bilaterally. GI: Tenderness to lower abdomen worse in right lower quadrant. Positive McBurney's point. Guarding noted. No distension. No rebound tenderness MSK:Extremities w/o deformity, Normal Active ROM Skin: Warm, Dry. No rashes or lesions. Neuro: Normal Muscle tone, No focal neurological deficits. Psych: Awake, Alert, & Oriented x3. Appropriate mood and affect. Const: Vital Signs, click to edit/add: Vital Signs - 24 hr 03/25/24 08:39 03/25/24 10:26 Temperature 98.9 F Pulse Rate [Pulse Oximeter] 61 64 Respiratory Rate 18 16 Blood Pressure [Ri ght Upper Arm] 107/85 102/64 Pulse Oximetry 97 97 Oxygen Delivery Me thod Room Air Course Vital Signs Vital signs: Initial Vital Signs Temperature 98.9 F 03/25/24 08:39 Temperature Source Temporal Artery Scan 03/25/24 08:39 Pulse Rate 61 03/25/24 08:39 Respiratory Rate 18 03/25/24 08:39 Blood Pressure 107/85 03/25/24 08:39 Blood Pressure Mean 92 03/25/24 08:39 Blood Pressure Position Sitting 03/25/24 08:39 Pulse Oximetry 97 03/25/24 08:39 Oxygen Delivery Method Room Air 03/25/24 08:39 Vital Signs Temperature 98.9 F 03/25/24 08:39 Pulse Rate 61 03/25/24 08:39 Respiratory Rate 18 03/25/24 08:39 Blood Pressure 107/85 03/25/24 08:39 Pulse Oximetry 97 03/25/24 08:39 Oxygen Delivery Method Room Air 03/25/24 08:39 Temperature 98.9 F 03/25/24 08:39 Pulse Rate 64 03/25/24 10:26 Respiratory Rate 16 03/25/24 10:26 Blood Pressure 102/64 03/25/24 10:26 Pulse Oximetry 97 03/25/24 10:26 Oxygen Delivery Method Room Air 03/25/24 08:39 Medications Administered Medications: Discontinued Medications Generic Name Dose Route Start Last Admin Trade Name Leonel PRN Reason Stop Dose Admin Lactated Ringer's 1,000 mls @ 1,000 mls/hr 03/25/24 09:17 03/25/24 10:45 Lactated Ringers 1000 Ml IV 03/25/24 10:16 Infused .Q1H ONE Infusion Morphine Sulfate 4 mg 03/25/24 09:17 03/25/24 09:38 Morphine 4 Mg/Ml Inj IVP 03/25/24 09:18 2 mg ONCE ONE Administration Ondansetron HCl 4 mg 03/25/24 09:17 03/25/24 09:36 Ondansetron 2 Mg/Ml Inj IVP 03/25/24 09:18 4 mg ONCE ONE Administration MDM - Abdominal Pain MDM Narrative Medical decision making narrative: Patient is a 68-year-old female presenting for lower abdominal pain. At this time differential includes diverticulitis, appendicitis, colitis, gastroenteritis, UTI. Considering location gallbladder/liver disease and pancreatitis seems less likely. No previous abdominal surgeries so SBO is unlikely. Will do a CT scan for better evaluation. CBC, CMP, lipase, urinalysis all ordered. Also ordered a troponin and EKG as abdominal pain can be uncommon sign of ACS. EKG and troponin showed no concerning findings. Considering length the symptoms I do not believe repeat troponin is necessary. Rest of lab work shows no concerning findings. Viral swabs are negative. Urinalysis may show a UTI but is a contaminated sample. Will wait on results of CT before getting another sample. CT scan returned showing acute sigmoid colonic diverticulitis. Does recommend colonoscopy after resolution of symptoms if not up-to-date. She states her last colonoscopy was 2 years ago so do not believe she needs to repeat the colonoscopy. Considering she has been having symptoms for a few days now without any improvement and developing mucous I do think it is reasonable to start her on Augmentin. This will also cover any possible UTI. Do not believe repeat urinalysis is necessary. She is agreeable to this plan will be discharge. Lab Data Labs: Lab Results 03/25/24 03/25/24 Range/Units 09:17 Unknown WBC 6.25 (4.50-11.00) K/uL RBC 4.26 (4.00-5.20) m/uL Hgb 12.5 (12.0-16.0) gm/dL Hct 37.3 (33.0-51.0) % MCV 88 (80-100) fL MCH 29 (26-34) pg MCHC 34 (32-36) gm/dL RDW Coeff of [place] 12.4 (11.5-15.5) % Plt Count 172 (140-440) K/uL Neut % (Auto) 67.2 (42.0-72.0) % Lymph % (Auto) 20.0 (20-44) % [place] % (Auto) 10.2 (0.0-11.0) % Eos % (Auto) 2.1 (0.0-7.0) % Baso % (Auto) 0.3 (0.0-3.0) % Neut # (Auto) 4.20 (1.7-7.0) K/uL Lymph # (Auto) 1.25 (0.90-2.90) K/uL [place] # (Auto) 0.60 (0.00-0.90) K/UL Eos # (Auto) 0.13 (0.00-0.50) K/uL Baso # (Auto) 0.02 (0.00-0.30) K/uL Abs Immat Gran (auto) 0.01 (0.00-0.30) K/uL Imm/Tot Granulo (auto) 0.2 % Sodium 138 (135-149) mmol/L Potassium 3.7 (3.6-5.1) mmol/L Chloride 107 (96-114) mmol/L Carbon Dioxide 24 (20-32) mmol/L Anion Gap 7 (7-15) mEq/L BUN 15 (7-30) mg/dL Creatinine 0.7 (0.5-1.5) mg/dL Estimated Creat Clear 54.32 Estimated GFR 94 ml/min Glucose 97 (60-115) mg/dL Calcium 9.0 (8.4-10.6) mg/dL Total Bilirubin 0.5 (0.1-1.5) mg/dL AST 28 (12-35) U/L ALT 25 (4-35) U/L Alkaline Phosphatase 73 (40-150) U/L Total Protein 6.9 (6.0-8.3) g/dL Albumin 3.9 (3.3-5.0) g/dL Lipase 54 (23-300) U/L Urine Color Yellow (Yellow) Urine Appearance Clear (Clear) Urine pH 5.5 (5.0-8.5) Ur Specific [place] >= 1.030 (1.000-1.030) Urine Protein 2+ A (Negative) Urine Glucose (UA) Negative (Negative) Urine Ketones 1+ A (Negative) Urine Blood 2+ A (Negative) Urine Nitrite Negative (Negative) Urine Bilirubin 2+ A (Negative) Urine Urobilinogen 1.0 (0.2-1.0) Ur Leukocyte Esterase Negative (Negative) Urine RBC 0-2 (0-2) Urine WBC 0-2 (0-5) Ur Squamous Epith Cells Moderate A (None-Few) Amorphous Sediment Moderate A (None) Urine Bacteria Few A (None) Fine Granular Casts Moderate A (None) Urine Mucus Many A (None) SARS-CoV-2 (PCR) Negative SARS-CoV-2 (Negative) Influenza Type A (PCR) Negative PCR FLU A (Negative) Influenza Type B (PCR) Negative PCR FLU B (Negative) RSV (PCR) Negative PCR RSV (Negative) POC Creatinine 0.9 (0.6-1.3) mg/dl POC Troponin I 0.00 L (0.01-0.04) ng/ml Imaging Data CT scan abdomen and pelvis: Attestation: I have reviewed the pertinent imaging results. Radiologist's impression: Acute sigmoid colonic diverticulitis. No evidence of abscess formation or extraluminal free air. If not up-to-date recommend follow-up with colonoscopy after resolution of acute symptoms to exclude underlying lesion. Please note that all CT scans at this facility use dose modulation, iterative reconstruction, and/or weight-based dosing when appropriate to reduce radiation dose to as low as reasonably achievable. Dictated by Nithya Odom MD @ 03/25/2024 10:48:25 AM ECG Data Attestation: I personally reviewed and interpreted this ECG as follows: Prior ECG tracings: available for review Interpretation: Sinus bradycardia with a rate of 58 beats per minute, normal intervals, normal axis, no ST or T-wave abnormalities. Appears similar previous EKG on file Discharge Plan Discharge Clinical Impression: Diverticulitis Patient Disposition: Home, Self-Care Condition: Stable Instructions: Diverticulitis (DC) Additional Instructions: Take the Augmentin as prescribed. Return for new or worsening symptoms. Follow up with your primary care provider if symptoms are not improving Prescriptions: New amoxicillin-pot clavulanate 875-125 mg tablet 1 tab PO TID 5 Days Qty: 15 0RF No Action Flonase Sensimist 27.5 mcg/actuation spray,suspension 1 spray intranasal QDAY PRN Rx Instructions: into each nostril estradiol 0.01 % (0.1 mg/gram) cream 0.5 g vaginal DAILY Qty: 42.5 3RF multivitamin [Daily Multi-Vitamin] Tablet 1 tab PO QAM diltiazem HCl 180 mg capsule,extended release 24hr 180 mg PO DAILY Follow Up/Referrals: Breana Rodriguez MD [Staff Physician] - Stand Alone Forms: [employer]opt[employer] Info Instructions
[2024-03-25 09:33] LABS: Basophils Absolute Auto 0.02 K/uL (0.00-0.30); Basophils Percent Auto 0.3 % (0.0-3.0); Eosinophils Absolute Auto 0.13 K/uL (0.00-0.50); Eosinophils Percent Auto 2.1 % (0.0-7.0); Hematocrit 37.3 % (33.0-51.0); Hemoglobin* 12.5 gm/dL (12.0-16.0); Immature Granulocytes Abs Auto 0.01 K/uL (0.00-0.30); Immature Granulocytes Pct Auto 0.2 %; Lymphocytes Absolute Auto 1.25 K/uL (0.90-2.90); Mean Corpuscular HGB Conc 34 gm/dL (32-36); Mean Corpuscular Hemoglobin 29 pg (26-34); Mean Corpuscular Volume 88 fL (80-100); Monocytes Percent Auto 10.2 % (0.0-11.0); Neutrophils Percent Auto 67.2 % (42.0-72.0); Platelet Count* 172 K/uL (140-440); RDW Coefficient of Variation % 12.4 % (11.5-15.5); Red Blood Count 4.26 m/uL (4.00-5.20); Slide Review Reflex No; White Blood Count* 6.25 K/uL (4.50-11.00)
--- OUTSIDE RECORDS SUMMARY | 2024-03-25 09:35 | XMS_ITS | Clinical Summary ---
Author Organization [employer] [facility] Address [place], [place] [address] Care Team Providers Care Planer Setter Name Role Phone Alison Cook Primary Care Provider [phone] Allergies Active Allergy Reactions Criticality Noted Date [...] on file Legal Sex Female 5:24 AM ACADEMIC GUIDANCE SPECIALIST Gender Identity Not on file Sexual Orientation [...] 1-dose 75+ series) 05/22/2030 [place] [address] [facility] [place] [address] Advance Directives * Full Code (Latest Code Status on File) Date Activated Date Inactivated Comments 07/15/2014 11:12 AM 07/15/2014 4:29 PM Care Teams Planer Setter Relationship Specialty Start Date End Date Alison Cook MBBS PCP - General Internal Medicine 08/31/13
--- OUTSIDE RECORDS SUMMARY | 2024-03-25 09:35 | XMS_ITS | Encounter Summary ---
Author Organization [facility] Address [address] [place] [address] Care Team Providers Care Explosive Operator Fuse Name Role Phone Jagdish Astorga M.D. Primary Care Provider [phone] Reason for Referral * Outpatient (Routine) - Closed Specialty Diagnoses / Procedures Referred By Joye walsh Referred To Contact Diagnoses Screening Mammogram Breast Cancer Procedures BI Breast Screening Bilateral with Tomosynthesis Jagdish Astorga M.D. [address] [place] [phone] Phone: tel: fax: [facility] Region Referral ID Status Reason Start Date Expiration Date Visits Re quested Visits Authorized [id number] Closed 01/02/2024 01/01/2025 1 1 [facility] Reason for Visit * Outpatient (Routine) - Closed Specialty Diagnoses / Procedures Referred By Joey walsh Referred To Contact Diagnoses Screening Mammogram Breast Cancer Procedures BI Breast Screening Bilateral with Tomosynthesis Jagdish Astorga M.D. [address] [place] [phone] Phone: tel: fax: [facility] [place] Region Referral ID Status Reason Start Date Expiration Date Visits Re quested Visits Authorized [id number] Closed 01/02/2024 01/01/2025 1 1 Encounter Details Date Type Department Care Team (Latest Contact Info) Description 02/17/2024 9:46 AM PEOPLESOFT - 02/17/2024 11:59 PM PEOPLESOFT Hospital Encounter Department of Radiology in [place], [place] [address] [place] [phone] Jagdish Astorga M.D. [address] [place] [phone] Screening Mammogram Breast Cancer Discharge Disposition: Home or Self Care Social History Tobacco Use Types Packs/Day Years Used Date Smoking Tobacco: Never Smokeless Tobacco: Never Alcohol Use Standard Drinks/Week Comments Yes 0 (1 standard drink = 0.6 oz pur e alcohol) Social [employer] Utilities Answer Date Recorded In the past 12 months has [employer], gas, oil, or water [employer] threatened to shut off services in your [...] often do you attend chur ch or roman catholic services? More than 4 times per year 02/11/2020 Do you belong to any clubs o r organizations such as mandaeism groups, unions, fraternal or athletic groups, or [...] Answer Date Recorded PHQ-2 Score 0 01/02/2024 [facility] of Occupat ional [facility] - Occupational Stress Questionnaire Answer Date [...] your living situation today? [facility] 01/02/2024 Education Answer Date Recorded What is the highest level of school you have completed or the highest degree you have received? 12th grade 02/11/2020 Comments No Sex and Gender Information Value Date Recorded Sex Assigned at Female 03/08/2023 1:21 PM PEOPLESOFT Legal Sex Female 5:23 AM PEOPLESOFT Gender Identity Female 03/30/2020 2:08 PM PEOPLESOFT Sexual Orientation Straight 03/30/2020 2: 08 PM PEOPLESOFT documented as of this encounter Medications at [...] st Contact Info) Description 03/30/2024 9:00 AM PEOPLESOFT Office Visit Department of Cardiovascular Diseases in [place], [place] [address] [place] [address] Aris Martinez M.D. [address] [place] [address] documented as of this encounter Procedures Procedure Name Priority Date/Time Associated Diagnosis Comments BI BREAST SCREENING BILATERAL WITH TOMOSYNTHESIS RAD - Routine (most inpatients and all outpatients) 02/17/2024 11:10 AM PEOPLESOFT Screening Mammogram Breast Cancer documented in this encounter Results * BI Breast Screening Bilateral with Tomosynthesis (02/17/2024 11:10 AM PEOPLESOFT) Anatomical Region Laterality Modality Breast, Breast Imaging RST L OS, Breast Imaging ARZ LOS, Breast Imaging FLA LOS Bilateral Mammography Impressions 02/17/2024 11:31 AM PEOPLESOFT Negative. RECOMMENDATION: Annual Screening Mammogram ASSESSMENT: BI-RADS: 1: Negative. Narrative 02/17/2024 11:31 AM PEOPLESOFT EXAM: BI BREAST SCREENING BILATERAL WITH TOMOSYNTHESIS [...] Total Score: 4 02/01/20 15 10:13 AM PEOPLESOFT documented as of this encounter Care Teams Explosive Operator Fuse Relationship Specialty Start Date End Date Jagdish Astorga M.D. [address] [place] [phone] PCP - General Family Medicine 03/03/23 [facility] [place], [place] Optometry 01/02/24 documented as of this encounter
--- OUTSIDE RECORDS SUMMARY | 2024-03-25 09:35 | XMS_ITS | Clinical Summary ---
Author Organization [facility] Address [address] [place] [address] Care Team Providers Care Abalone Diver Name Role Phone Jagdish Astorga M.D. Primary Care Provider [phone] Source Comments Patient records contain information from all sites at [facility]. For routine questions regarding patient records, call [phone] during business hours, M-F 8:00 AM - 5:00 PM Central Time. Record requests for emergency care only can be directed to [phone] at any time.[facility] Allergies No known active allergies [...] Nurse Triage Department of Family Medicine, [facility], in [address] [address] Lilly Alejo, RShengN. Abdominal Pain 03/21/2024 9:47 AM RACQUET MAKER - 03/21/2024 11:59 PM RACQUET MAKER Hospital Encounter Department of Cardiovascular Diseases in [address] [address] Aris Martinez M.D. Shortness Of Breath; Beat Premature Ventricular; Mitral Valve Prolapse Discharge Disposition: Home or Self Care 03/21/2024 8:41 AM RACQUET MAKER - 03/21/2024 9:46 AM RACQUET MAKER Hospital Encounter Department of Laboratory Medicine in [address] [address] Aris Martinez M.D. Shortness Of Breath; Beat Premature Ventricular; Mitral Valve Prolapse Discharge Disposition: Home or Self Care 03/21/2024 8:41 AM RACQUET MAKER - 03/21/2024 9:46 AM RACQUET MAKER Hospital Encounter Department of Cardiovascular Diseases in [address] [address] Aris Martinez M.D. Shortness Of Breath; Beat Premature Ventricular; Mitral Valve Prolapse Discharge Disposition: Home or Self Care 02/17/2024 9:46 AM RACQUET MAKER - 02/17/2024 11:59 PM RACQUET MAKER Hospital Encounter Department of Radiology in [address] [address] Jagdish Astorga M.D. Screening Mammogram Breast Cancer Discharge Disposition: Home or Self Care 01/16/2024 Orders Only Department of [facility], [facility], in [address] [address] Jagdish Astorga M.D. Osteoporosis (Primary Dx) 01/02/2024 10:30 AM CDT Office Visit Department of [facility], in [address] [address] Lima Ponce R.N. Annual Medicare Examination Return (Primary Dx) 01/02/2024 Clinical Communication Department of [facility], [facility], in [address] [address] Jagdish Astorga M.D. Diltiazem (Patient wants some [...] = 0.6 oz pur e alcohol) Social [employer] Utilities Answer Date Recorded In the past 12 months has e electric, gas, oil, or water [employer] threatened to shut off services in your [...] often do you attend chur ch or baptist services? More than 4 times per year 02/11/2020 Do you belong to any clubs o r organizations such as roman catholic groups, unions, fraternal or athletic groups, or [...] Answer Date Recorded PHQ-2 Score 0 01/02/2024 [facility] of Occupat ional [facility] - Occupational Stress Questionnaire Answer Date [...] your living situation today? I have a [facility] place to live 01/02/2024 Education Answer Date Recorded What is the highest level of school you have completed or the highest degree you have received? 12th grade 02/11/2020 Comments No Sex and Gender Information Value Date Recorded Sex Assigned at Female 03/08/2023 1:21 PM RACQUET MAKER Legal Sex Female 5:23 AM RACQUET MAKER Gender Identity Female 03/30/2020 2:08 PM RACQUET MAKER Sexual Orientation Straight 03/30/2020 2: 08 PM RACQUET MAKER Last Filed Vital Signs Vital Sign Reading Time Taken Comments Blood Pressure 117/73 01/02/2024 11:19 AM CDT average of 3 Pulse 59 01/02/2024 11:19 AM CDT Temperature 36.3 C (97.3 F) 01/02/2024 11:19 AM CDT Respiratory Rate 16 01/02/2024 11:1 9 AM CDT Oxygen Saturation 96% 03/08/2023 2:1 6 PM RACQUET MAKER Inhaled Oxygen Concentration - - Weight 76.1 kg (167 lb 12.3 oz) 01/02/2024 11:19 AM CDT Height 164.5 cm (5' 4.76) 01/02/2024 1 1:19 AM CDT Body Mass Index 28.12 01/02/2024 11:19 AM CDT Plan of Treatment Upcoming Encounters Date Type Department Care Team (Late st Contact Info) Description 03/30/2024 9:00 AM RACQUET MAKER Office Visit Department of Cardiovascular Diseases in [place], [place] [address] [place] [address] Aris Martinez M.D. [address] [place] [address] Health Maintenance Due Date Last Done Comments [...] Diagnosis Comments HOLTER MONITOR - IN CLINIC SCOOPING MACHINE TENDER Routine 03/22/2024 10:31 AM RACQUET MAKER Shortness Of Breath Beat Premature Ventricular Mitral Valve Prolapse (TTE) 2D ECHO DOPPLER COLOR Routine 03/21/2024 10:16 AM RACQUET MAKER Shortness Of Breath Beat Premature Ventricular Mitral Valve Prolapse ECG Routine 03/21/2024 9:32 AM RACQUET MAKER Shortness Of Breath Beat Premature Ventricular Mitral Valve Prolapse BI BREAST SCREENING BILATERAL WITH TOMOSYNTHESIS RAD - Routine (most inpatients and all outpatients) 02/17/2024 11:10 AM RACQUET MAKER Screening Mammogram Breast Cancer BASIC METABOLIC PANEL, S/P Routine 01/27/2023 2:14 PM RACQUET MAKER Shortness Of Breath COLONOSCOPY Routine 07/08/2016 from Last 3 Months or Most Recently Relevant to Health Maintenance Results * (TTE) 2D ECHO DOPPLER COLOR (03/21/2024 10:16 AM RACQUET MAKER) Ejection Fraction 63 MC CV EIMS Mid-Ascending [...] Region Laterality Modality Echocardiography 03/21/2024 8:41 AM RACQUET MAKER Impressions 03/21/2024 4:11 PM RACQUET MAKER Transthoracic outreach echo interpretation. LEFT VENTRICLE:Normal left [...] the Order-Level Documents. Narrative 03/21/2024 4:11 PM RACQUET MAKER For the complete report, see the Order-Level [...] * ECG 12 Lead (03/21/2024 9:32 AM RACQUET MAKER) Ventricular Rate ECG/Min 48 BPM MUSE MT Interval 166 ms MUSE QRSD Interval 88 ms MUSE QT Interval 486 ms MUSE QTC Interval 434 ms MUSE P Bethel 37 degrees MUSE R Bethel -17 degrees MUSE T Wave [place] 20 degrees MUSE 03/21/2024 9:32 AM RACQUET MAKER 03/21/2024 9:52 AM RACQUET MAKER Impressions MUSE - 03/21/2024 9:52 AM RACQUET MAKER Marked sinus bradycardia Otherwise normal ECG When [...] Screening Bilateral with Tomosynthesis (02/17/2024 11:10 AM RACQUET MAKER) Anatomical Region Laterality Modality Breast, Breast Imaging RST L OS, Breast Imaging ARZ LOS, Breast Imaging FLA LOS Bilateral Mammography Impressions 02/17/2024 11:31 AM RACQUET MAKER Negative. RECOMMENDATION: Annual Screening Mammogram ASSESSMENT: BI-RADS: 1: Negative. Narrative 02/17/2024 11:31 AM RACQUET MAKER EXAM: BI BREAST SCREENING BILATERAL WITH TOMOSYNTHESIS [...] (ABNORMAL) Basic Metabolic Panel (01/27/2023 2:14 PM RACQUET MAKER) Potassium, P 4.2 3.6 - 5.2 mmol/L 01/27/2023 3:10 PM RACQUET MAKER OWAT Sodium, P 140 135 - 145 mmol/L 01/27/2023 3:10 PM RACQUET MAKER OWAT Chloride, P 104 98 - 107 mmol/L 01/27/2023 3:10 PM RACQUET MAKER OWAT Bicarbonate, P 20(L) 22 - 29 mmol/L 01/27/2023 3:10 PM RACQUET MAKER OWAT Anion Gap, P 16(H) 7 - 15 01/27/2023 3:10 PM RACQUET MAKER OWAT BUN (Blood Urea Nitrogen), P 24(H) 6 - 21 mg/dL 01/27/2023 3:10 PM RACQUET MAKER OWAT Creatinine 0.93 0.59 - 1.04 mg/dL 01/27/2023 3:10 PM RACQUET MAKER OWAT Estimated GFR (eGFR) 67 >=60 mL/min/BSA 01/27/2023 3:10 PM RACQUET MAKER OWAT Comment: Estimated GFR calculated using the 2020 CKD_EPI creatinine equation. Calcium, Total, P 9.6 8.8 - 10.2 mg/dL 01/27/2023 3:10 PM RACQUET MAKER OWAT Glucose, P 91 70 - 140 mg/dL 01/27/2023 3:10 PM RACQUET MAKER OWAT Blood (Blood, Venous) 01/27/2023 2:14 PM RACQUET MAKER 01/27/2023 2:19 PM RACQUET MAKER us Kristine Mccarty P.A.-C., P.A. LAB BLOOD ADD-ON Ivonne l Result [facility] [address] [place] [address], [place] OWAT [facility] [address] [place] [address] * Colonoscopy (07/08/2016) EXT Colonoscopy Normal - See Scanned Report for Details Normal - See Scanned Report for Details, HIMS - Report Received and Scanned Comment:Chart Review - 2016 Progress Note: colonoscopy on 07/08/2016 at [facility]. It showed diverticulosis. us Historical Provider GI PROCEDURE ORDERABLES Ivonne l Result from Last 3 Months or Most Recently Relevant to Health Maintenance Insurance MEDICARE [facility] Care Teams Abalone Diver Relationship Specialty Start Date End Date Jagdish Astorga M.D. [address] [place] [phone] PCP - General Family Medicine 03/03/23 [facility] [place], [place] Optometry 01/02/24
--- OUTSIDE RECORDS SUMMARY | 2024-03-25 09:35 | XMS_ITS | Encounter Summary ---
Author Organization [facility] Address [address] [place] [address] Care Team Providers Care Coffee Maker Name Role Phone Jagdish Astorga M.D. Primary Care Provider Reason for Visit * Reason Onset Date Comments Abdominal Pain 03/24/2024 Encounter Details Date Type Department Care Team (Late st Contact Info) Description 03/24/2024 Nurse Triage Department of Family Medicine, [facility], in [address] [phone] Lilly Alejo, R.N. [address] [place] [phone] Abdominal Pain Social History Tobacco Use Types Packs/Day Years Used Date Smoking Tobacco: Never Smokeless Tobacco: Never Alcohol Use Standard Drinks/Week Comments Yes 0 (1 standard drink = 0.6 oz pur e alcohol) Social [facility] Utilities Answer Date Recorded In the past 12 months has [employer], gas, oil, or water company threatened [...] often do you attend chur ch or mu-ism services? More than 4 times per year 02/11/2020 Do you belong to any clubs o r organizations such as druze groups, unions, fraternal or athletic groups, or [...] Answer Date Recorded PHQ-2 Score 0 01/02/2024 [facility] of Occupat ional [facility] - Occupational Stress Questionnaire Answer Date [...] your living situation today? [facility] 01/02/2024 Education Answer Date Recorded What is the highest level of school you have completed or the highest degree you have received? 12th grade 02/11/2020 Comments No Sex and Gender Information Value Date Recorded Sex Assigned at Female 03/08/2023 1:21 PM NOCTURNIST PHYSICIAN Legal Sex Female 5:23 AM NOCTURNIST PHYSICIAN Gender Identity Female 03/30/2020 2:08 PM NOCTURNIST PHYSICIAN Sexual Orientation Straight 03/30/2020 2: 08 PM NOCTURNIST PHYSICIAN documented as of this encounter Miscellaneous Notes [...] that Guideline.) Protocols used: Abdominal Pain - [id number]-[id number] Care Advice Patient/Caregiver understands and will follow care advice?: Yes, able to teach back Abdominal Pain - [id number] Nurse Lilly Sosa Mar 24, 2024 08:42 AM Care Advice SEE PCP WITHIN 24 HOURS: * You need to be examined within the next 24 hours. CALL BACK IF: * Severe pain lasts over 1 hour * Constant pain lasts over 2 hours * You become worse URNIST PHYSICIAN documented in this encounter Plan of Treatment Upcoming Encounters Date Type Department Care Team (Late st Contact Info) Description 03/30/2024 9:00 AM NOCTURNIST PHYSICIAN Office Visit Department of Cardiovascular Diseases in [place], [place] [address] [place] [address] Aris Martinez M.D. [address] [place] [address] documented as of this encounter Visit Diagnoses Not on filedocumented in this encounter Additional Health Concerns Assessment Noted Time PHQ-9 Depression Total Score: 4 02/01/20 15 10:13 AM NOCTURNIST PHYSICIAN documented as of this encounter Care Teams Coffee Maker Relationship Specialty Start Date End Date Jagdish Astorga M.D. [address] [place] [address] PCP - General Family Medicine 03/03/23 [facility] [place], [place] Optometry 01/02/24 documented as of this encounter
--- OUTSIDE RECORDS SUMMARY | 2024-03-25 09:35 | XMS_ITS | Encounter Summary ---
Author Organization [facility] Address [address] [place] [address] Care Team Providers Care Candy Maker Name Role Phone Jagdish Astorga M.D. Primary Care Provider [phone] Reason for Referral * Outpatient (Routine) - Closed Specialty Diagnoses / Procedures Referred By Joey walsh Referred To Contact Diagnoses Shortness Of Breath Beat Premature Ventricular Mitral Valve Prolapse Procedures ECG Heart rhythm monitor (Holter) Aris Martinez M.D. [address] [place] [address] Phone: tel: fax: [facility] Region Referral ID Status Reason Start Date Expiration Date Visits Re quested Visits Authorized [id number] Closed 03/03/2023 03/02/2024 1 1 [facility] Reason for Visit * Outpatient (Routine) - Closed Specialty Diagnoses / Procedures Referred By Joey walsh Referred To Contact Diagnoses Shortness Of Breath Beat Premature Ventricular Mitral Valve Prolapse Procedures ECG Heart rhythm monitor (Holter) Aris Martinez M.D. [address] [place] [address] Phone: tel: fax: [facility] Region Referral ID Status Reason Start Date Expiration Date Visits Re quested Visits Authorized [id number] Closed 03/03/2023 03/02/2024 1 1 Encounter Details Date Type Department Care Team (Latest Contact Info) Description 03/21/2024 9:47 AM FLOATMAN - 03/21/2024 11:59 PM FLOATMAN Hospital Encounter Department of Cardiovascular Diseases in [place], [place] [address] [facility] [address] Aris Martinez M.D. [address] [place] [address] Shortness Of Breath; Beat Premature Ventricular; Mitral Valve Prolapse Discharge Disposition: Home or Self Care Social History Tobacco Use Types Packs/Day Years Used Date Smoking Tobacco: Never Smokeless Tobacco: Never Alcohol Use Standard Drinks/Week Comments Yes 0 (1 standard drink = 0.6 oz pur e alcohol) Social [employer] Utilities Answer Date Recorded In the past 12 months has [employer], gas, oil, or water [employer] threatened to shut off services in your [...] How often do you attend chur or orthodoxy services? More than 4 times per year 02/11/2020 Do you belong to any clubs o r organizations such as holiness groups, unions, fraternal or athletic groups, or [...] Answer Date Recorded PHQ-2 Score 0 01/02/2024 [facility] of Occupat ional [facility] - Occupational Stress Questionnaire Answer Date [...] Sex Assigned at Female 03/08/2023 1:21 PM FLOATMAN Legal Sex Female 5:23 AM FLOATMAN Gender Identity Female 03/30/2020 2:08 PM FLOATMAN Sexual Orientation Straight 03/30/2020 2: 08 PM FLOATMAN documented as of this encounter Medications at [...] st Contact Info) Description 03/30/2024 9:00 AM FLOATMAN Office Visit Department of Cardiovascular Diseases in [place], [place] [address] [place] [address] Aris Martinez M.D. [address] [place] [address] Pending Results Name Type Priority Associated Diagnoses Date /Time ECG Heart rhythm monitor (Holter) Cardiac Services Routine Shortness Of Breath Beat Premature Ventricular Mitral Valve Prolapse 03/22/2024 10:31 AM FLOATMAN documented as of this encounter Procedures Procedure Name Priority Date/Time Associated Diagnosis Comments HOLTER MONITOR - IN CLINIC LABORER CHEMICAL PROCESSING Routine 03/22/2024 10:31 AM FLOATMAN Shortness Of Breath Beat Premature Ventricular Mitral Valve Prolapse documented in this encounter Visit Diagnoses Diagnosis Shortness Of Breath Beat Premature Ventricular Mitral Valve Prolapse documented in this encounter Additional Health Concerns Assessment Noted Time PHQ-9 Depression Total Score: 4 02/01/20 15 10:13 AM FLOATMAN documented as of this encounter Care Teams Candy Maker Relationship Specialty Start Date End Date Jagdish Astorga M.D. [address] [place] [address] PCP - General Family Medicine 03/03/23 [facility] [place], [place] Optometry 01/02/24 documented as of this encounter
--- OUTSIDE RECORDS SUMMARY | 2024-03-25 09:35 | XMS_ITS | Clinical Summary ---
Author Organization [facility] Address [address] [place] [address] Care Team Providers Care Bi Consultant Name Role Phone Unassigned, Provider Primary Care Provider Unava ilable Source Comments You are receiving this document as you are listed as the primary care provider,follow-up provider, or the patient has been referred to you for consultation.This is in compliance with the Medicare and[facility] EHR Incentive Program,which states Providers who transition their patient to another setting of careor provider of care or refers their patient to another provider of care shouldprovide summary care record for each transition of care or referral. [facility] Social History Tobacco Use Types Packs/Day Years [...] age to complete this topic Care Teams Bi Consultant Relationship Specialty Start Date End Date Unassigned, Provider [address] [place] [address] PCP - General 02/20/00
--- OUTSIDE RECORDS SUMMARY | 2024-03-25 09:35 | XMS_ITS | Referral Summary ---
[facility] Address [address] [place] [address] Care Team Providers Care Fabric Worker Name Role Phone Jagdish Astorga M.D. Primary Care Provider Source Comments Patient records contain information from all sites at [facility]. For routine questions regarding patient records, call [phone] during business hours, M-F 8:00 AM - 5:00 PM Central Time. Record requests for emergency care only can be directed to [phone] at any time.[facility] Encounters Date Type Department Care Team Description 03/24/2024 Nurse Triage Department of Family Medicine, [facility], in [address] [phone] Lilly Alejo R.N. Abdominal Pain 03/21/2024 8:41 AM ADVERTISING SALES AGENT - 03/21/2024 9:46 AM ADVERTISING SALES AGENT Hospital Encounter Department of Laboratory Medicine in [address] [phone] Aris Martinez M.D. Shortness Of Breath; Beat Premature Ventricular; Mitral Valve Prolapse Discharge Disposition: Home or Self Care 03/21/2024 9:47 AM ADVERTISING SALES AGENT - 03/21/2024 11:59 PM ADVERTISING SALES AGENT Hospital Encounter Department of Cardiovascular Diseases in [address] [address] Aris Martinez M.D. Shortness Of Breath; Beat Premature Ventricular; Mitral Valve Prolapse Discharge Disposition: Home or Self Care 03/21/2024 8:41 AM ADVERTISING SALES AGENT - 03/21/2024 9:46 AM ADVERTISING SALES AGENT Hospital Encounter Department of Cardiovascular Diseases in [address] [address] Aris Martinez M.D. Shortness Of Breath; Beat Premature Ventricular; Mitral Valve Prolapse Discharge Disposition: Home or Self Care 02/17/2024 9:46 AM ADVERTISING SALES AGENT - 02/17/2024 11:59 PM ADVERTISING SALES AGENT Hospital Encounter Department of Radiology in [address] [phone] Jagdish Astorga M.D. Screening Mammogram Breast Cancer Discharge Disposition: Home or Self Care 01/16/2024 Orders Only Department of Family Medicine, [facility], in [address] [phone] Jagdish Astorga M.D. Osteoporosis (Primary Dx) 01/02/2024 Clinical Communication Department of [facility], [facility], in [address] [address] Jagdish Astorga M.D. Diltiazem (Patient wants some clarifications on dosing. ); Health Maintenance items (Mammo and Pap) 01/02/2024 10:30 AM CDT Office Visit Department of Family Medicine, [facility], in [address] [phone] Lima Ponce R.N. Annual Medicare Examination Return [...] the past 12 months has th e [employer], gas, oil, or water [employer] threatened to shut off services in your [...] often do you attend chur ch or episcopal services? More than 4 times per year [...] Answer Date Recorded PHQ-2 Score 0 01/02/2024 [facility] - Occupational Stress Questionnaire Answer Date Recorded [...] your living situation today? [facility] 01/02/2024 Education Answer Date Recorded What is the highest level of school you have completed or the highest degree you have received? 12th grade 02/11/2020 Comments No Sex and Gender Information Value Date Recorded Sex Assigned at Female 03/08/2023 1:21 PM ADVERTISING SALES AGENT Legal Sex Female 5:23 AM ADVERTISING SALES AGENT Gender Identity Female 03/30/2020 2:08 PM ADVERTISING SALES AGENT Sexual Orientation Straight 03/30/2020 2: 08 PM ADVERTISING SALES AGENT Last Filed Vital Signs Vital Sign Reading Time Taken Comments Blood Pressure 117/73 01/02/2024 11:19 AM CDT average of 3 Pulse 59 01/02/2024 11:19 AM CDT Temperature 36.3 C (97.3 F) 01/02/2024 11:19 AM CDT Respiratory Rate 16 01/02/2024 11:1 9 AM CDT Oxygen Saturation 96% 03/08/2023 2:1 6 PM ADVERTISING SALES AGENT Inhaled Oxygen Concentration - - Weight 76.1 kg (167 lb 12.3 oz) 01/02/2024 11:19 AM CDT Height 164.5 cm (5' 4.76) 01/02/2024 1 1:19 AM CDT Body Mass Index 28.12 01/02/2024 11:19 AM CDT Plan of Treatment Upcoming Encounters Date Type Department Care Team (Late st Contact Info) Description 03/30/2024 9:00 AM ADVERTISING SALES AGENT Office Visit Department of Cardiovascular Diseases in [place], [place] [address] [place] [address] Aris Martinez M.D. [address] [place] [address] Procedures Procedure Name Priority Date/Time Associated Diagnosis Comments HOLTER MONITOR - IN CLINIC SECURITY CONTROLS ASSESSOR Routine 03/22/2024 10:31 AM ADVERTISING SALES AGENT Shortness Of Breath Beat Premature Ventricular Mitral Valve Prolapse (TTE) 2D ECHO DOPPLER COLOR Routine 03/21/2024 10:16 AM ADVERTISING SALES AGENT Shortness Of Breath Beat Premature Ventricular Mitral Valve Prolapse ECG Routine 03/21/2024 9:32 AM ADVERTISING SALES AGENT Shortness Of Breath Beat Premature Ventricular Mitral Valve Prolapse BI BREAST SCREENING BILATERAL WITH TOMOSYNTHESIS RAD - Routine (most inpatients and all outpatients) 02/17/2024 11:10 AM ADVERTISING SALES AGENT Screening Mammogram Breast Cancer BASIC METABOLIC PANEL, S/P Routine 01/27/2023 2:14 PM ADVERTISING SALES AGENT Shortness Of Breath COLONOSCOPY Routine 07/08/2016 from Last 3 Months or Most Recently Relevant to Health Maintenance Results * (TTE) 2D ECHO DOPPLER COLOR (03/21/2024 10:16 AM ADVERTISING SALES AGENT) Ejection Fraction 63 MC CV EIMS Mid-Ascending [...] Region Laterality Modality Echocardiography 03/21/2024 8:41 AM ADVERTISING SALES AGENT Impressions 03/21/2024 4:11 PM ADVERTISING SALES AGENT Transthoracic outreach echo interpretation. LEFT VENTRICLE:Normal left [...] the Order-Level Documents. Narrative 03/21/2024 4:11 PM ADVERTISING SALES AGENT For the complete report, see the Order-Level [...] by side comparison of imagesperformed. Findings Transthoracic [facility] echo interpretation. LEFT VENTRICLE:Normal left ventricular [...] * ECG 12 Lead (03/21/2024 9:32 AM ADVERTISING SALES AGENT) Ventricular Rate ECG/Min 48 BPM MUSE AR Interval 166 ms MUSE QRSD Interval 88 ms MUSE QT Interval 486 ms MUSE QTC Interval 434 ms MUSE P [place] 37 degrees MUSE R [place] -17 degrees MUSE T Wave [place] 20 degrees MUSE 03/21/2024 9:32 AM ADVERTISING SALES AGENT 03/21/2024 9:52 AM ADVERTISING SALES AGENT Impressions MUSE - 03/21/2024 9:52 AM ADVERTISING SALES AGENT Marked sinus bradycardia Otherwise normal ECG When [...] Screening Bilateral with Tomosynthesis (02/17/2024 11:10 AM ADVERTISING SALES AGENT) Anatomical Region Laterality Modality Breast, Breast Imaging RST L OS, Breast Imaging ARZ LOS, Breast Imaging FLA LOS Bilateral Mammography Impressions 02/17/2024 11:31 AM ADVERTISING SALES AGENT Negative. RECOMMENDATION: Annual Screening Mammogram ASSESSMENT: BI-RADS: 1: Negative. Narrative 02/17/2024 11:31 AM ADVERTISING SALES AGENT EXAM: BI BREAST SCREENING BILATERAL WITH TOMOSYNTHESIS [...] (ABNORMAL) Basic Metabolic Panel (01/27/2023 2:14 PM ADVERTISING SALES AGENT) Potassium, P 4.2 3.6 - 5.2 mmol/L 01/27/2023 3:10 PM ADVERTISING SALES AGENT OWAT Sodium, P 140 135 - 145 mmol/L 01/27/2023 3:10 PM ADVERTISING SALES AGENT OWAT Chloride, P 104 98 - 107 mmol/L 01/27/2023 3:10 PM ADVERTISING SALES AGENT OWAT Bicarbonate, P 20(L) 22 - 29 mmol/L 01/27/2023 3:10 PM ADVERTISING SALES AGENT OWAT Anion Gap, P 16(H) 7 - 15 01/27/2023 3:10 PM ADVERTISING SALES AGENT OWAT BUN (Blood Urea Nitrogen), P 24(H) 6 - 21 mg/dL 01/27/2023 3:10 PM ADVERTISING SALES AGENT OWAT Creatinine 0.93 0.59 - 1.04 mg/dL 01/27/2023 3:10 PM ADVERTISING SALES AGENT OWAT Estimated GFR (eGFR) 67 >=60 mL/min/BSA 01/27/2023 3:10 PM ADVERTISING SALES AGENT OWAT Comment: Estimated GFR calculated using the 2020 CKD_EPI creatinine equation. Calcium, Total, P 9.6 8.8 - 10.2 mg/dL 01/27/2023 3:10 PM ADVERTISING SALES AGENT OWAT Glucose, P 91 70 - 140 mg/dL 01/27/2023 3:10 PM ADVERTISING SALES AGENT OWAT Blood (Blood, Venous) 01/27/2023 2:14 PM ADVERTISING SALES AGENT 01/27/2023 2:19 PM ADVERTISING SALES AGENT us Kristine Mccarty P.A.-C., P.ASheng LAB BLOOD ADD-ON Ivonne l Result [facility] [address] [place] [address], [facility] OWAT [facility] in [place] [address] [place] [address] * Colonoscopy (07/08/2016) EXT Colonoscopy Normal - See Scanned Report for Details Normal - See Scanned Report for Details, HIMS - Report Received and Scanned Comment:Chart Review - 2016 Progress Note: colonoscopy on 07/08/2016 at [facility]. It showed diverticulosis. Historical Provider GI PROCEDURE ORDERABLES Ivonne l Result from Last 3 Months or Most Recently Relevant to Health Maintenance Insurance MEDICARE [facility] Care Teams Fabric Worker Relationship Specialty Start Date End Date Jagdish Astorga M.D. [address] [place] [phone] PCP - General Family Medicine 03/03/23 [facility] [place], [place] Optometry 01/02/24
--- OUTSIDE RECORDS SUMMARY | 2024-03-25 09:35 | XMS_ITS | Encounter Summary ---
Author Organization [facility] Address [address] [place] [address] Care Team Providers Care Regional Director Of Finance Name Role Phone Jagdish Astorga M.D. Primary Care Provider [phone] Reason for Referral * Cardiovascular-Diagnostic (Routine) - Closed Specialty Diagnoses / Procedures Referred By Joey walsh Referred To Contact Diagnoses Shortness Of Breath Beat Premature Ventricular Mitral Valve Prolapse Procedures Echo Transthoracic (TTE) Aris Martinez M.D. [address] [place] [address] Phone: tel: fax: [facility] Region Referral ID Status Reason Start Date Expiration Date Visits Re quested Visits Authorized [id number] Closed 03/03/2023 03/02/2024 1 1 [facility] Reason for Visit * Cardiovascular-Diagnostic (Routine) - Closed Specialty Diagnoses / Procedures Referred By Joey walsh Referred To Contact Diagnoses Shortness Of Breath Beat Premature Ventricular Mitral Valve Prolapse Procedures Echo Transthoracic (TTE) Aris Martinez M.D. [address] [place] [address] Phone: tel: fax: [facility] Region Referral ID Status Reason Start Date Expiration Date Visits Re quested Visits Authorized [id number] Closed 03/03/2023 03/02/2024 1 1 Encounter Details Date Type Department Care Team (Latest Contact Info) Description 03/21/2024 8:41 AM DOUBLE CUTTER - 03/21/2024 9:46 AM DOUBLE CUTTER Hospital Encounter Department of Cardiovascular Diseases in [place], [place] [address] [facility] [place] [address] Aris Maritnez M.D. [address] [place] [address] Shortness Of Breath; Beat Premature Ventricular; Mitral Valve Prolapse Discharge Disposition: Home or Self Care Social History Tobacco Use Types Packs/Day Years Used Date Smoking Tobacco: Never Smokeless Tobacco: Never Alcohol Use Standard Drinks/Week Comments Yes 0 (1 standard drink = 0.6 oz pur e alcohol) Social [employer] Util[employer] Answer Date Recorded In the past 12 months has [employer], gas, oil, or water [employer] threatened to shut off services in your [...] How often do you attend chur or uatsdin services? More than 4 times per year 02/11/2020 Do you belong to any clubs o r organizations such as orthodoxy groups, unions, fraternal or athletic groups, or [...] Answer Date Recorded PHQ-2 Score 0 01/02/2024 [facility] of Occupat ional [facility] - Occupational Stress Questionnaire Answer [...] Sex Assigned at Female 03/08/2023 1:21 PM DOUBLE CUTTER Legal Sex Female 5:23 AM DOUBLE CUTTER Gender Identity Female 03/30/2020 2:08 PM DOUBLE CUTTER Sexual Orientation Straight 03/30/2020 2: 08 PM DOUBLE CUTTER documented as of this encounter Medications at [...] st Contact Info) Description 03/30/2024 9:00 AM DOUBLE CUTTER Office Visit Department of Cardiovascular Diseases in [place], [place] [address] [place] [address] Aris Martinez M.D. [address] [place] [address] documented as of this encounter Procedures Procedure Name Priority Date/Time Associated Diagnosis Comments (TTE) 2D ECHO DOPPLER COLOR Routine 03/21/2024 10:16 AM DOUBLE CUTTER Shortness Of Breath Beat Premature Ventricular Mitral Valve Prolapse documented in this encounter Results * (TTE) 2D ECHO DOPPLER COLOR (03/21/2024 10:16 AM DOUBLE CUTTER) Ejection Fraction 63 MC CV EIMS Mid-Ascending [...] Region Laterality Modality Echocardiography 03/21/2024 8:41 AM DOUBLE CUTTER Impressions 03/21/2024 4:11 PM DOUBLE CUTTER Transthoracic outreach echo interpretation. LEFT VENTRICLE:Normal left [...] the Order-Level Documents. Narrative 03/21/2024 4:11 PM DOUBLE CUTTER For the complete report, see the Order-Level [...] Total Score: 4 01/31/ 15 10:13 AM DOUBLE CUTTER documented as of this encounter Care Teams Regional Director Of Finance Relationship Specialty Start Date End Date Jagdish Astorga M.D. [address] [place] [address] [place] [phone] PCP - General Family Medicine 03/03/23 [facility] [place], [place] Optometry 01/02/24 documented as of this encounter
--- OUTSIDE RECORDS SUMMARY | 2024-03-25 09:35 | XMS_ITS | Encounter Summary ---
Author Organization [facility] Address [address] [place] [address] Care Team Providers Care Tire And Tube Repairer Name Role Phone Jagdish Astorga M.D. Primary Care Provider [phone] Reason for Referral * Outpatient (Routine) - Closed Specialty Diagnoses / Procedures Referred By Joey walsh Referred To Contact Diagnoses Shortness Of Breath Beat Premature Ventricular Mitral Valve Prolapse Procedures ECG 12 Lead Aris Martinez M.D. [address] [place] [address] Phone: tel: fax: [facility] Region Referral ID Status Reason Start Date Expiration Date Visits Re quested Visits Authorized [id number] Closed 03/03/2023 03/02/2024 1 1 O OFFSET PRINTER Reason for Visit * Outpatient (Routine) - Closed Specialty Diagnoses / Procedures Referred By Joey walsh Referred To Contact Diagnoses Shortness Of Breath Beat Premature Ventricular Mitral Valve Prolapse Procedures ECG 12 Lead Aris Martinez M.D. [address] [place] [address] Phone: tel: fax: [facility] [place] Region Referral ID Status Reason Start Date Expiration Date Visits Re quested Visits Authorized [id number] Closed 03/03/2023 03/02/2024 1 1 Encounter Details Date Type Department Care Team (Latest Contact Info) Description 03/21/2024 8:41 AM PHOTO OFFSET PRINTER - 03/21/2024 9:46 AM PHOTO OFFSET PRINTER Hospital Encounter Department of Laboratory Medicine in [place], [place] [address] [place] [address] Aris Martinez M.D. [address] [place] [address] Shortness Of Breath; Beat Premature Ventricular; Mitral Valve Prolapse Discharge Disposition: Home or Self Care Social History Tobacco Use Types Packs/Day Years Used Date Smoking Tobacco: Never Smokeless Tobacco: Never Alcohol Use Standard Drinks/Week Comments Yes 0 (1 standard drink = 0.6 oz pur e alcohol) Social [employer] Utilities Answer Date Recorded In the past 12 months has [employer], gas, oil, or water [employer] threatened to shut off services in your [...] How often do you attend chur or samaritan services? More than 4 times per year 02/11/2020 Do you belong to any clubs o r organizations such as pentecostalism groups, unions, fraternal or athletic groups, or [...] Date Recorded PHQ-2 Score 0 01/02/2024 [facility] - Occupational Stress Questionnaire Answer Date Recorded [...] your living situation today? [facility] 01/02/2024 Education Answer Date Recorded What is the highest level of school you have completed or the highest degree you have received? 12th grade 02/11/2020 Comments No Sex and Gender Information Value Date Recorded Sex Assigned at Female 03/08/2023 1:21 PM PHOTO OFFSET PRINTER Legal Sex Female 5:23 AM PHOTO OFFSET PRINTER Gender Identity Female 03/30/2020 2:08 PM PHOTO OFFSET PRINTER Sexual Orientation Straight 03/30/2020 2: 08 PM PHOTO OFFSET PRINTER documented as of this encounter Medications at [...] st Contact Info) Description 03/30/2024 9:00 AM PHOTO OFFSET PRINTER Office Visit Department of Cardiovascular Diseases in [place], [place] [address] [place] [address] Aris Martinez M.D. [address] [place] [address] documented as of this encounter Procedures Procedure Name Priority Date/Time Associated Diagnosis Comments ECG Routine 03/21/2024 9:32 AM PHOTO OFFSET PRINTER Shortness Of Breath Beat Premature Ventricular Mitral Valve Prolapse documented in this encounter Results * ECG 12 Lead (03/21/2024 9:32 AM PHOTO OFFSET PRINTER) Ventricular Rate ECG/Min 48 BPM MUSE SD Interval 166 ms MUSE QRSD Interval 88 ms MUSE QT Interval 486 ms MUSE QTC Interval 434 ms MUSE P [place] 37 degrees MUSE R [place] -17 degrees MUSE T Wave [place] 20 degrees MUSE 03/21/2024 9:32 AM PHOTO OFFSET PRINTER 03/21/2024 9:52 AM PHOTO OFFSET PRINTER Impressions MUSE - 03/21/2024 9:52 AM PHOTO OFFSET PRINTER Marked sinus bradycardia Otherwise normal ECG When [...] Total Score: 4 02/01/20 15 10:13 AM PHOTO OFFSET PRINTER documented as of this encounter Care Teams Tire And Tube Repairer Relationship Specialty Start Date End Date Jagdish Astorga M.D. [address] [place] [phone] PCP - General Family Medicine 03/03/23 [facility] [place], [place] Optometry 01/02/24 documented as of this encounter
--- OUTSIDE RECORDS SUMMARY | 2024-03-25 09:35 | XMS_ITS | Encounter Summary ---
Author Organization [facility] Address [address] [place] [address] Care Team Providers Care Manager Product Marketing Name Role Phone Jagdish Astorga M.D. Primary Care Provider Encounter Details Date Type Department Care Team (Late st Contact Info) Description 09/23/2014 Historical Ophthalmology RST OPH Leatha Moreno M.D. Social History Tobacco Use Types Packs/Day Years Used Date Smoking Tobacco: Never Assessed Comments Unknown Sex and Gender Information Value Date Recorded Sex Assigned at Female 03/08/2023 1:21 PM PAPER TWISTER TENDER Legal Sex Female 5:23 AM PAPER TWISTER TENDER Gender Identity Female 03/30/2020 2:08 PM PAPER TWISTER TENDER Sexual Orientation Straight 03/30/2020 2: 08 PM PAPER TWISTER TENDER documented as of this encounter Progress Notes * Leatha Moreno M.D. - 09/23/2014 7:07 AM CDT Eye General CHIEF COMPLAINT Possible optic nerve inflammation HISTORY OF PRESENT ILLNESS No current changes/concerns with vision. From Dr. Hernandez's Neurology Consult note of 09/17/14: In June 2014 she was in [place]. She is sitting in a chair and [...] eyebrow tenderness which spread to her right advent. Massaging her advent does help. She also feels an occasional [...] of this, she was referred here to [facility].She did see an middle school professional at the end of July who did [...] headaches. For this she has taken various hxqm-hpy-ftrofsv medications but nothing in the last month. [...] white flash). She saw Dr. Turk in [facility] who didn't think there was any evidence of inflammation. No outside eye records available to me. Reviewed neuro notes. No neuro-imaging available. IMPRESSION / REPORT / PLAN Consult requested by: Rosalia Gayle [phone] #[phone] Migraine headache with aura, with no [...] (hyperopia, hyperopic astigmatism, presbyopia). CDM Reports - EYESynesis Id: [id number] Status: Fnl documented in this encounter Plan of Treatment Upcoming Encounters Date Type Department Care Team (Late st Contact Info) Description 03/30/2024 9:00 AM PAPER TWISTER TENDER Office Visit Department of Cardiovascular Diseases in [address] [phone] Aris Martinez M.D. [address] [place] [address] documented as of this encounter Visit Diagnoses Not on filedocumented in this encounter Additional Health Concerns Infection Onset Date Last Indicated Resolved Time COVID19 01/31/2023 01/31/2023 02/20/2023 5:49 AM PAPER TWISTER TENDER Assessment Noted Time PHQ-9 Depression Total Score: 3 07/06/19 15 8:44 AM CDT documented as of this encounter Care Teams Manager Product Marketing Relationship Specialty Start Date End Date Jagdish Astorga M.D. [address] [facility] [place] [address] PCP - General Family Medicine 03/03/23 [facility] [place], [place] Optometry 01/02/24 documented as of this encounter
--- OUTSIDE RECORDS SUMMARY | 2024-03-25 09:35 | XMS_ITS ---
Author Organization [facility] Address [address] [place] [address] Care Team Providers Care Advertising Sales Assistant Name Role Phone Unavailable Unavailable Unavailable Surgery Details Not on file Complications Check Surgery Details section. Procedure Estimated Blood Loss Check Surgery Details section. Procedure Findings Check Surgery Details section. Procedure Specimens Taken Check Surgery Details section.
[2024-03-25] MEDS: ONDANSETRON 2 MG/ML inj 4 MG IVP (09:36)
--- OUTSIDE RECORDS SUMMARY | 2024-03-25 09:36 | XMS_ITS | Continuity of Care Document ---
Author Name NwSANDRON User [email or web address] Address Unknown Organization Unknown Address Unknown Procedures FILTER APPLIED:Only known Procedures with Onset Date within the last 5 years Procedure Date Procedure Provider Additiona l Information Status SCR MAMMO BI INCL CAD (35908) Completed BREAST TOMOSYNTHESIS BI (71958) Completed COMPLETE CBC W/AUTO DIFF WBC (47833) Completed ELECTROCARDIOGRAM TRACING (89951) Completed MEASURE BLOOD OXYGEN LEVEL (72514) Completed EMERGENCY DEPT VISIT MOD MDM (18500) Completed ASSAY OF TROPONIN QUANT (11994) Completed X-RAY EXAM CHEST 1 VIEW (56042) Completed ROUTINE VENIPUNCTURE (26711) Completed EMERGENCY DEPT VISIT HI MDM (10218) Completed COMPREHEN METABOLIC PANEL (54022) Completed ASSAY OF MAGNESIUM (84834) Completed ASSAY OF NATRIURETIC PEPTIDE (95933) Completed FIBRIN DEGRADATION QUANT (75893) Completed C-REACTIVE PROTEIN (21642) Completed DOPPLER COLOR FLOW ADD-ON (04333) Completed STRESS TTE COMPLETE (18470) Completed Encounters FILTER APPLIED:Only known Encounters with Admission Date within the last 5 years Encounter Location Admission Discharge Billing Code Driver Retraining Instructor Mildred chavarria Outpatient Andrea Rodriguez Emergency Della Suero Outpatient Nikita Rivers
[2024-03-25] MEDS: MORPHINE 4 MG/ML INJ IVP (09:38)
[2024-03-25] MEDS: LACTATED RINGERS 1000 ML 1,000 ML IV (09:42)
[2024-03-25 09:45] LABS: Albumin* 3.9 g/dL (3.3-5.0); Chloride* 107 mmol/L (96-114); Potassium* 3.7 mmol/L (3.6-5.1); Sodium* 138 mmol/L (135-149)
[2024-03-25 09:47] LABS: Anion Gap 7 mEq/L (7-15); Bilirubin Total* 0.5 mg/dL (0.1-1.5); Carbon Dioxide* 24 mmol/L (20-32); Creatinine* 0.7 mg/dL (0.5-1.5); Est. Creatinine Clearance* 54.32; Estimated Glomerular Filt Rate 94 ml/min
[2024-03-25 09:48] LABS: Alanine Aminotransferase* 25 U/L (4-35); Alkaline Phosphatase* 73 U/L (40-150); Aspartate Amino Transferase* 28 U/L (12-35); Blood Urea Nitrogen* 15 mg/dL (7-30); Glucose* 97 mg/dL (60-115); Total Protein* 6.9 g/dL (6.0-8.3)
[2024-03-25 09:49] LABS: Creatinine, Point-of-Care* 0.9 mg/dl (0.6-1.3)
[2024-03-25 10:03] LABS: Lipase* 54 U/L (23-300)
[2024-03-25 10:09] LABS: PCR FLU A Negative PCR FLU A (Negative); PCR FLU B Negative PCR FLU B (Negative); PCR RSV Negative PCR RSV (Negative); SARS PCR* Negative SARS-CoV-2 (Negative)
[2024-03-25 10:26] VITALS: BP 102/64; PULSE 64; RESP 16; O2SAT 97
== END 2024-03-25 11:21 | disposition home or self-care (01) ==
PROVIDERS: Emergency Provider Student in an Organized Health Care Education/Training Program
DX: K57.92 Diverticulitis of intestine, part unspecified, without perforation or abscess without bleeding (principal)
CPT/HCPCS: 36415; 74177; 80053; 81001; 81003; 82565; 83690; 84484; 85025; 87086; 87631; 96374; 96375; 99284; 99285; J2270; J2405; J7120; Q9967

== ENCOUNTER 2024-09-24 16:00 | Outpatient (RCR) | payer MEDICARE, BC, SELFPAY | END 2025-01-22 23:59 | disposition home or self-care (01) | PROVIDERS: Visit Provider Family Medicine | DX: M54.50 Low back pain, unspecified (principal); M53.3 Sacrococcygeal disorders, not elsewhere classified; Z51.89 Encounter for other specified aftercare | CPT/HCPCS: 97110; 97162 ==